=== PATIENT | female | born 1930 | race Caucasian/White ===

== ENCOUNTER 2016-07-22 14:51 | Inpatient (IN) | payer MEDICARE ==
[~2016-07-22] VITALS: Ht 172.7 cm; Wt 116.1 kg
[~2016-07-22 14:51] MED LIST: ALBUTEROL SULF8.5 GM INH; AMLODIPINE BESY10 MG ORAL; ASCORBIC ACID500 MG ORAL; AZITHROMYCIN250 MG ORAL; BENAZEPRIL HCL40 MG ORAL; CALCIUM CITRAT200 M1 PO; COLACE100 MG ORAL; FISH OIL CAP1000 MG ORAL; IBUPROFEN800 MG ORAL; NORCO 5-325 TA1 EACH ORAL; OCUVITE1 EA ORAL; OSTERA TABLET1 EACH PO; ROBAFEN-DM SYR118 ML PO; ROBITUSSIN AC5 ML ORAL; SIMVASTATIN20 MG ORAL
[2016-07-22] MEDS ORDERED: Ipratropium 0.02% Inh Soln 2.5ml UD HHN ONE (15:00)
[2016-07-22] MEDS ORDERED: Albuterol ud Inhalation HHN ONE (15:00)
[2016-07-22] MEDS ORDERED: OCUVITE TABLET1 EAC1 ORAL (15:05)
[2016-07-22] MEDS ORDERED: ASPIRIN81 MG ORAL (15:05)
[2016-07-22] MEDS ORDERED: VITAMIN B-122000 MC1 PO (15:05)
[2016-07-22] MEDS ORDERED: IBUPROFEN800 MG ORAL (15:05)
[2016-07-22 15:28] VITALS: BP 167/100
[2016-07-22] MEDS ORDERED: Diltiazem 25mg/5ml IV ONE ×2 (15:30→16:00)
[2016-07-22 15:41] VITALS: BP 123/96
--- NOTE | 2016-07-22 15:41 | Emergency Room Report ---
History of Present Illness General Chief Complaint: Dyspnea/Respdistress Source: Patient, Family Member Present Illness HPI The patient presents with 2 days of increasing dyspnea. She feels extremely short of breath at this time and feels palpitations in her chest she's had an episode like this in the past and was diagnosed with bronchitis. She has never been this ill. No fevers. No productive cough. Chart was reviewed and previous cardiac rhythm was normal sinus rhythm. No vomit, some nausea. No chest pain, dysuria, diarrhea. There is some swelling of her R foot according to son. No calf pain. She is anxious - not depressed. No rashes. Allergies: Coded Allergies: No Known Allergies (Unverified , 04/24/13) Patient History Past Medical History: see triage record, old chart reviewed Social History: Denies: smoking Social History Narrative at home Reviewed Nursing Documentation: PMH: Agreed, PSxH: Agreed Nursing Documentation-PMH Hx Hypertension: Yes Hx Pacemaker: No - ARTHRITIS ,HYPERLIPIDEMIA Hx COPD: No - BRONCHITIS Review of Systems All Other Systems: negative except mentioned in HPI Physical Exam Vital Signs Date Time Temp Pulse Resp B/P Pulse Ox O2 Delivery O2 Flow Rate FiO2 07/22/16 15:01 97.2 149 20 187/86 94 Room Air 07/22/16 15:28 2.0 Sp02 EP Interpretation: reviewed, abnormal - low on O2 as interpreted by me General Appearance: GCS 15, moderate distress Head: normocephalic Eyes: bilateral eye PERRL, bilateral eye normal inspection ENT: moist mucus membranes Neck: supple, other - jimenez a waves Respiratory: rales, wheezing, expiration Cardiovascular #1: no murmur, tachycardia, irregularly irregular, edema - trace bilat Cardiovascular #2: 2+ radial (R) Gastrointestinal: normal inspection, normal bowel sounds, non tender, no mass, non-distended Musculoskeletal: back normal, gait/station normal, normal range of motion, no calf tenderness, Rodolfo's Sign negative Neurologic: alert, oriented x3, grossly normal Psychiatric: anxious Skin: other - sallo and cool Procedures Critical Care Time Critical Care Time Total time: 45 min bedside evaluation and treatment excludes procedures (EKG). Reason for critical care: cardiac arrhythmia, hypoxia, a fib with conversion, + D dimer Possible complications: hypotension, hypertension, NE, shock, arrhythmias, metabolic acidosis, end organ damage, respiratory failure. Interventions: diltiazem, antibiotics Course: Hypoxia treated with O2 and beta agents. Discussion with RT. Attempt rate control with diltiazem - still rapid. Repeat dose. Pneumonia treated with antibiotics. + D dimer - to CTA. No clot. Converted after CT. Remarkably improved with treatment. Discussed with son multiple times. Consultations: nursing staff, EMS, family, RT, admitting MD Performed by: Dr. Felix Tolerated well condition = serious Medical Decision Making Diagnostic Impression: Primary Impression: Hypoxia Additional Impressions: Atrial fibrillation, new onset Pulmonary infiltrate in right lung on chest x-ray ER Course Patient presents with severe dyspnea. Emergent treatment with oxygen and breathing treatments will be undertaken. She also has rales. A chest x-ray and EKG will be obtained. In addition laboratory will be obtained also. Need to focus on rate control and assessment of A fib. Improved slightly on oxygen. HR rapid. Diltiazem ordered. Still tachycardic. Slightly better. Diltiazem repeated. Patient with elevated D dimer. Sent to CT with RN on monitor. Patient converted to NSR in ED. Repeat EKG - NSR, LAD, LBBB, sinus arrhythmia. Patient improved. CT neg for PE. Admit [place] Dr. Rivera. Discussed also with Dr. Arteaga. Laboratory Tests Test 07/22/16 15:21 07/22/16 15:25 07/22/16 16:26 White Blood Count 14.4 K/UL (4.8-10.8) H Red Blood Count 4.86 M/UL (4.20-5.40) Hemoglobin 15.6 G/DL (12.0-16.0) Hematocrit 45.4 % (37.0-47.0) Mean Corpuscular Volume 94 FL (80-99) Mean Corpuscular Hemoglobin 32.1 PG (27.0-31.0) H Mean Corpuscular Hemoglobin Concent 34.4 G/DL (32.0-36.0) Red Cell Distribution Width 12.7 % (11.6-14.8) Platelet Count 157 K/UL (150-450) Mean Platelet Volume 7.6 FL (6.5-10.1) Neutrophils (%) (Auto) 87.9 % (45.0-75.0) H Lymphocytes (%) (Auto) 6.7 % (20.0-45.0) L Monocytes (%) (Auto) 4.2 % (1.0-10.0) Eosinophils (%) (Auto) 0.3 % (0.0-3.0) Basophils (%) (Auto) 0.9 % (0.0-2.0) Prothrombin Time 10.3 SEC (9.30-11.50) Prothrombin Time INR 1.0 (0.9-1.1) PTT 25 SEC (23-33) D-Dimer 1898 ng/mL (<500) H Sodium Level 138 mEQ/L (135-145) Potassium Level 4.2 mEQ/L (3.4-4.9) Chloride Level 95 mEQ/L (98-107) L Carbon Dioxide Level 25 mEQ/L (20-30) Anion Gap 18 (5-15) H Blood Urea Nitrogen 13 mg/dL (7-23) Creatinine 0.8 mg/dL (0.5-0.9) Estimate Glomerular Filtration Rate mL/min (>60) Glucose Level 168 mg/dL (74-106) H Lactic Acid Level 2.70 mmol/L (0.66-2.22) H 2.20 mmol/L (0.66-2.22) Calcium Level 9.2 mg/dL (8.6-10.2) Total Bilirubin 1.0 mg/dL (0.0-1.2) Aspartate Amino Transferase (AST) 22 U/L (5-40) Alanine Aminotransferase (ALT) 18 U/L (3-33) Alkaline Phosphatase 73 U/L (35-104) Total Creatine Kinase 189 U/L (26-140) H Troponin I < 0.30 ng/mL (<=0.30) Pro-B-Type Natriuretic Peptide 908 pg/mL (0-450) H Total Protein 7.1 g/dL (6.6-8.7) Albumin 4.5 g/dL (3.5-5.2) Globulin 2.6 g/dL Albumin/Globulin Ratio 1.7 (1.0-2.7) Thyroid Stimulating Hormone (TSH) 1.250 uIU/mL (0.300-4.500) Free Thyroxine 1.12 ng/dL (0.86-1.85) Urine Color Pale yellow Urine Appearance Clear Urine pH 6.5 (4.5-8.0) Urine Specific [place] 1.010 (1.005-1.035) Urine Protein Negative (NEGATIVE) Urine Glucose (UA) Negative (NEGATIVE) Urine Ketones Negative (NEGATIVE) Urine Occult Blood 2+ (NEGATIVE) H Urine Nitrite Negative (NEGATIVE) Urine Bilirubin Negative (NEGATIVE) Urine Urobilinogen Normal MG/DL (0.0-1.0) Urine Leukocyte Esterase Negative (NEGATIVE) Urine RBC 0-2 /HPF (0 - 2) Urine WBC 0-2 /HPF (0 - 2) Urine Squamous Epithelial Cells Occasional /LPF Urine Bacteria Occasional /HPF (NONE) Microbiology Date/Time Source Procedure Growth Status 07/22/16 16:23 Nasal Nares Influenza Types A,B Antigen (MARTINEZ) - Final Complete EKG Diagnostic Results Rate: tachycardiac Rhythm: other - Atrial fibrillation ST Segments: other - BBB Rhythm Strip Diag. Results EP Interpretation: yes Rhythm: no PVC's, no ectopy, other - Rapid atrial fibrillation Chest X-Ray Diagnostic Results EP Interpretation: Yes Findings: no effusion, no pneumothorax, other - Bilateral infiltrates worse on the right-hand side with possible congestive heart failure Number of Views: 1 CT/MRI/US Diagnostic Results CT/MRI/US Diagnostic Results : Imaging Test Ordered: CTA Impression no PE, bilat infiltrates Impression: No evidence of pulmonary embolus, aortic dissection or aneurysm. Mild atherosclerotic disease of aorta. Small bilateral pleural effusions and posterior basal atelectasis. Some mild perihilar disease. Query bronchitis. Consider followup. Minimal patchy groundglass opacities within the lungs nonspecific. Gallstones Last Vital Signs Date Time Temp Pulse Resp B/P Pulse Ox O2 Delivery O2 Flow Rate FiO2 07/22/16 19:00 98.3 81 19 145/84 97 Nasal Cannula 2.0 32 Status: improved Disposition: ADMITTED INPATIENT Condition: Serious Referrals: [facility],REFERRING (PCP) Garret Felix M.D. Jul 22, 2016 15:41
[2016-07-22 15:44] LABS: MEAN CORPUSCULAR HEMOGLOBIN 32.1 PG (27.0-31.0); MEAN CORPUSCULAR HGB CONC 34.4 G/DL (32.0-36.0); MEAN CORPUSCULAR VOLUME 94 FL (80-99); MEAN PLATELET VOLUME 7.6 FL (6.5-10.1); PLATELET COUNT 157 K/UL (150-450); RED BLOOD COUNT 4.86 M/UL (4.20-5.40); RED CELL DISTRIBUTION WIDTH 12.7 % (11.6-14.8); WHITE BLOOD COUNT 14.4 K/UL (4.8-10.8)
[2016-07-22 15:45] LABS: APPEARANCE,URINE CLEAR; KETONES,URINE NEGATIVE (NEGATIVE); LEUKOCYTE ESTERASE ,URINE NEGATIVE (NEGATIVE); NITRITE,URINE NEGATIVE (NEGATIVE); PH,URINE 6.5 (4.5-8.0); PROTEIN,URINE NEGATIVE (NEGATIVE); UROBILINOGEN,URINE NORMAL MG/DL (0.0-1.0)
[2016-07-22] MEDS ORDERED: Azithromycin Inj IV ONE ×2 (15:55→16:10)
[2016-07-22] MEDS ORDERED: Zosyn 3.375gm inj ONE (15:55)
[2016-07-22] MEDS ORDERED: NS 110 ML ONE (15:56)
[2016-07-22] MEDS ORDERED: D5W 275 ML ONE (15:56)
[2016-07-22 16:00] LABS: BACTERIA,URINE OCCASIONAL /HPF; RBC,URINE 0-2 /HPF (0 - 2); SQUAMOUS EPITHELIAL CELL,UR OCCASIONAL /LPF (NONE/OCC); WBC,URINE 0-2 /HPF (0 - 2)
[2016-07-22] MEDS ORDERED: Azithromycin 500 MG in D5W 275 ML IVPB ONE (16:00)
[2016-07-22] MEDS ORDERED: Piperacillin/Tazobactam 3.375 GM in NS 110 ML IVPB ONE (16:00)
[2016-07-22 16:02] LABS: BASOPHILS % (AUTO) 0.9 % (0.0-2.0); EOSINOPHILS % (AUTO) 0.3 % (0.0-3.0); LYMPHOCYTES % (AUTO) 6.7 % (20.0-45.0); MONOCYTES % (AUTO) 4.2 % (1.0-10.0); NEUTROPHILS % (AUTO) 87.9 % (45.0-75.0)
[2016-07-22 16:15] LABS: TROPONIN I < 0.30 ng/mL (<=0.30)
[2016-07-22 16:18] LABS: ALANINE AMINOTRANSFERASE 18 U/L (3-33); ALBUMIN/GLOBULIN RATIO 1.7 (1.0-2.7); ANION GAP 18 (5-15); ASPARTATE AMINO TRANSFERASE 22 U/L (5-40); CALCIUM 9.2 mg/dL (8.6-10.2); CARBON DIOXIDE 25 mEQ/L (20-30); CHLORIDE 95 mEQ/L (98-107); CREATININE 0.8 mg/dL (0.5-0.9); HEMOLYSIS 5; POTASSIUM 4.2 mEQ/L (3.4-4.9); REFLEX LACTIC ACID YES OR NO YES; SODIUM 138 mEQ/L (135-145); TOTAL PROTEIN 7.1 g/dL (6.6-8.7)
[2016-07-22 16:27] LABS: PROTHROMBIN TIME 10.3 SEC (9.30-11.50)
[2016-07-22 17:37] VITALS: BP 145/84
[2016-07-22 20:00] VITALS: BP 130/78
--- NOTE | 2016-07-22 20:23 | Consultation ---
Consult Note Assessment/Plan Cardiology for Dr. Jaramillo Full note dictated #[id number] SWEETIE DAY Jul 22, 2016 20:23
[2016-07-22 20:53] LABS: THYROID STIMULATING HORMONE 1.25 uIU/mL (0.300-4.500)
[2016-07-22] MEDS ORDERED: Heparin 5000 units/ml inj SUBQ SCH (21:00)
[2016-07-22] MEDS ORDERED: Metoprolol 25mg tab ORAL SCH (21:00)
[2016-07-23] VITALS: BP 136/74
[2016-07-23 04:00] VITALS: BP 129/64
--- NOTE | 2016-07-23 04:17 | Consultation ---
DATE OF CONSULTATION: 07/22/2016 This is a cardiology consult/cardiac electrophysiology consult, coverage for Dr. Jaramillo. REQUESTING PHYSICIAN: Marcia Rivera M.D. REASON FOR CONSULT: Atrial fibrillation. HISTORY OF PRESENT ILLNESS: This is an 86-year-old woman with hypertension and hyperlipidemia who has had a nonproductive cough over the past two days. Today, she developed shortness of breath and weakness. She presented to the emergency room with severe dyspnea and was noted to be in atrial fibrillation with rapid ventricular rates up to 160 beats per minute. She received intravenous diltiazem, and her rhythm has subsequently reverted back to normal sinus. A CT angiogram was performed, which was negative for pulmonary embolus. Chest x-ray showed right lung infiltrate. She is admitted for further treatment. She denies any previous history of arrhythmia, coronary artery disease, or congestive heart failure. MEDICATIONS: Azithromycin 500 mg daily p.o., subcutaneous heparin 5000 units subcutaneously b.i.d., Tylenol p.r.n., Zofran p.r.n., and diltiazem 20 mg IV was given in the emergency room. Zosyn 3.375 g was given IV x1 in the emergency room and azithromycin 500 mg IV given in the emergency room. ALLERGIES: No known drug allergies. PAST MEDICAL HISTORY: As noted above. SOCIAL HISTORY: The patient has a remote history of tobacco use less than one-half pack per day but has not smoked in several years. She has no history of alcohol abuse. PHYSICAL EXAMINATION: VITAL SIGNS: Blood pressure is 145/84, pulse 81 and regular, respirations 19, temperature 98.3, and pulse oximeter on 2 liters nasal cannula 97%. GENERAL: Alert, obese, white female in no acute distress on nasal cannula oxygen. HEENT: Normocephalic and atraumatic. Pupils are equal, round, and reactive to light. Sclerae anicteric. Oral mucosa moist. NECK: Supple. There is no jugular venous distention. Carotid pulses are 2+ without bruits. LUNGS: A few crackles at both bases. Good air movement. HEART: Regular rate and rhythm. S1 and S2 with distant heart sounds. No murmurs, rubs, S3, or S4. ABDOMEN: Obese, soft, and nontender. No palpable mass. EXTREMITIES: 2+ pitting edema of feet to ankles bilaterally. Distal lower extremity pulses 2+ bilaterally. LABORATORY DATA: Sodium 138, potassium 4.2, chloride 95, bicarbonate 25, BUN 13, creatinine 0.8, and glucose 168. Natriuretic peptide 908. Troponin less than 0.3. White blood count 14,400, hemoglobin 15.6, and platelets 157,000. Chest x-ray shows normal pulmonary vasculature, no cardiomegaly, and mild increased markings at the right base. EKG on admission showed atrial fibrillation with rapid ventricular response of 158 beats per minute, left bundle-branch block (no old EKG available for comparison). Repeat EKG shows sinus rhythm at 79 beats per minute with left bundle-branch block. ASSESSMENT AND RECOMMENDATIONS: The patient is an 86-year-old woman with hypertension and hyperlipidemia who is admitted with bronchitis versus pneumonia, and in this setting developed atrial fibrillation with rapid ventricular rates. Her rhythm has reverted back to normal sinus with intravenous diltiazem. There is no evidence for DVT or pulmonary embolus. There is no evidence for acute coronary syndrome. Troponin levels are negative though EKG does show a left bundle-branch block of uncertain duration. I would recommend continuing to trend troponins. I would agree with checking thyroid function tests and would obtain an echo to evaluate left ventricular function and valves. I will start low-dose beta-jodie for rate control. Should atrial fibrillation recur, I would consider anticoagulation given her CHADS score of 2. Dona Meadows M.D. DR: QUENTIN JOB#: [id number] CC:
[2016-07-23 05:32] LABS: BASOPHILS % (AUTO) 0.5 % (0.0-2.0); EOSINOPHILS % (AUTO) 0.8 % (0.0-3.0); LYMPHOCYTES % (AUTO) 15.4 % (20.0-45.0); MEAN CORPUSCULAR HEMOGLOBIN 31.9 PG (27.0-31.0); MEAN CORPUSCULAR HGB CONC 33.1 G/DL (32.0-36.0); MEAN CORPUSCULAR VOLUME 96 FL (80-99); MEAN PLATELET VOLUME 7.8 FL (6.5-10.1); NEUTROPHILS % (AUTO) 77.3 % (45.0-75.0); PLATELET COUNT 133 K/UL (150-450); RED BLOOD COUNT 3.91 M/UL (4.20-5.40); RED CELL DISTRIBUTION WIDTH 12.4 % (11.6-14.8); WHITE BLOOD COUNT 9.9 K/UL (4.8-10.8)
[2016-07-23 06:05] LABS: ALANINE AMINOTRANSFERASE 16 U/L (3-33); ALBUMIN/GLOBULIN RATIO 1.4 (1.0-2.7); ANION GAP 16 (5-15); ASPARTATE AMINO TRANSFERASE 20 U/L (5-40); CALCIUM 8.8 mg/dL (8.6-10.2); CARBON DIOXIDE 24 mEQ/L (20-30); CHLORIDE 99 mEQ/L (98-107); CREATININE 0.8 mg/dL (0.5-0.9); HEMOLYSIS 5; SODIUM 139 mEQ/L (135-145)
[2016-07-23 06:09] LABS: TROPONIN I < 0.30 ng/mL (<=0.30)
[2016-07-23 07:02] LABS: BILIRUBIN,DIRECT 0.2 mg/dL (0.1-0.3)
[2016-07-23 08:12] VITALS: BP 112/77
[2016-07-23] MEDS ORDERED: Heparin 5000 units/ml inj SUBQ SCH (09:00)
[2016-07-23] MEDS ORDERED: Metoprolol 25mg tab ORAL SCH (09:00)
--- NOTE | 2016-07-23 09:22 | Diagnostic Imaging Report ---
Indication: Chest pain Technique: Continuous helical transaxial imaging of the chest was obtained from the thoracic inlet to the upper abdomen during rapid intravenous contrast administration. Arterial phase of enhancement obtained. Coronal 2-D reformats were also obtained and maximum intensity projection images in multiple planes. Study obtained in a Siemens sensation [address] Total Dose length Product (DLP): [address] Dose Index Volume (CTDIvol): 13, 25, 33 mGy Comparison: None Findings: Bilateral pleural effusions are present with posterior basal atelectasis seen is a groundglass opacities at the peripheral posterior aspect lower lobes. There is free motion artifact which limits evaluation. There is no pulmonary embolus identified. The heart is enlarged. Aorta shows mural calcification but is normal in caliber and there is no dissection. No adenopathy is identified. There is a hiatal hernia. Some patchy perihilar densities are present bilaterally slightly worse on the right. Doubt this is adenopathy. Findings may be due to some adjacent parenchymal disease or bronchitis. These correlate clinically. The lungs show a few very mild scattered areas of groundglass opacification within portions of the upper and lower lobes. These findings are nonspecific. The upper abdomen shows gallstones. Impression: No evidence of pulmonary embolus, aortic dissection or aneurysm. Mild atherosclerotic disease of aorta. Small bilateral pleural effusions and posterior basal atelectasis. Some mild perihilar disease. Query bronchitis. Consider followup. Minimal patchy groundglass opacities within the lungs nonspecific. Gallstones Dr. Moreno has communicated the preliminary results to the Emergency Department. There are no significant discrepancies. The CT scanner at [facility] is accredited by the [employer] and the scans are performed using protocols designed to limit radiation exposure to as low as reasonably achievable to attain images of sufficient resolution adequate for diagnostic evaluation.
[2016-07-23] MEDS ORDERED: Furosemide 40mg tab ORAL ONE (10:00)
[2016-07-23 11:28] VITALS: BP 130/69
--- NOTE | 2016-07-23 14:50 | History and Physical ---
History of Present Illness General Date patient seen: Jul 22, 2016 Time patient seen: 17:52 Reason for Hospitalization: Dyspnea/Respdistress Present Illness HPI 86 yo [place] F with PMH of HTN, HLD and DJD p/w 2 d h/o productive cough with yellowish sputum, and SOB. No cp/palpitations. No f/c. +generalized weakness. usually ambulates with no difficulties. No h/o PNA. In ED, CXR with b/l infiltrates and found to be in a fib with RVR, which converted back to NSR after a dose of Dilt. +LE edema on ROS Allergies: Coded Allergies: No Known Allergies (Unverified , 04/24/13) Medication History Scheduled Albuterol Sulfate* (Albuterol Sulfate Mdi*), 2 PUFF INH Q6H Amlodipine Besylate* (Amlodipine Besylate*), 10 MG ORAL DAILY, (Reported) Ascorbic Acid* (Ascorbic Acid*), 500 MG ORAL DAILY, (Reported) Aspirin* (Aspirin*), 81 MG ORAL DAILY, (Reported) Azithromycin* (Zithromax*), 250 MG ORAL DAILY Benazepril Hcl* (Benazepril Hcl*), 40 MG ORAL DAILY, (Reported) Fish Oil (Fish Oil 1,000 mg Capsule), 1,000 MG ORAL DAILY, (Reported) Simvastatin (Zocor), 20 MG ORAL BEDTIME, (Reported) Vit A,C & E/Lutein/Minerals (Ocuvite Tablet), 1 TAB ORAL DAILY, (Reported) Vit D3 & K/Berberine Hcl/Hops (Ostera Tablet), 1 EACH PO D, (Reported) Scheduled PRN Guaifenesin/Codeine (Guaifenesin-Codeine Syrup), 5 ML ORAL EVERY 8 HOURS PRN for For Cough Guaifenesin/Dextromethorphan (Robafen-Dm Syrup), 5 ML PO EVERY 6 HOURS PRN for For Cough Ibuprofen* (Motrin*), 800 MG ORAL PRN PRN for For Pain, (Reported) Miscellaneous Medications Calcium Citrate (Calcium Citrate), 200 MG PO, (Reported) Cyanocobalamin (Vitamin B-12) (Vitamin B-12), 5,000 MCG PO, (Reported) Patient History Healthcare decision maker Resuscitation status Full Code Advanced Directive on File Past Medical/Surgical History Past Medical/Surgical History: (1) DJD (degenerative joint disease), multiple sites (2) HLD (hyperlipidemia) (3) HTN (hypertension) Family History Family History: Patient reports no known family medical history. Social History Social History: (1) No significant social history Review of Systems All Other Systems: negative except mentioned in HPI Physical Exam General Appearance: no apparent distress, alert HEENT: normocephalic, atraumatic, anicteric, mucous membranes moist, PERRL, EOMI, pharynx normal, no JVD Neck: non-tender, supple Respiratory/Chest: lungs clear, normal breath sounds, no respiratory distress, no accessory muscle use Cardiovascular/Chest: normal peripheral pulses, normal rate, regular rhythm Abdomen: normal bowel sounds, non tender, soft, no mass Extremities: non-tender, normal inspection, moderate edema Skin Exam: warm/dry 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, no motor/sensory deficits, alert Musculoskeletal: normal muscle bulk Last 24 Hour Vital Signs Date Time Temp Pulse Resp B/P Pulse Ox O2 Delivery O2 Flow Rate FiO2 07/23/16 11:28 98.1 67 18 130/69 96 Nasal Cannula 2.0 07/23/16 09:09 66 112/77 07/23/16 08:12 97.7 66 18 112/77 93 Nasal Cannula 2.0 07/23/16 08:00 67 07/23/16 04:29 70 07/23/16 04:00 96.1 73 20 129/64 96 Nasal Cannula 2.0 07/23/16 00:00 65 07/23/16 00:00 97.7 74 20 136/74 96 Nasal Cannula 2.0 07/22/16 21:00 82 130/78 07/22/16 20:00 98.3 82 20 130/78 96 Nasal Cannula 2.0 07/22/16 20:00 82 07/22/16 19:00 98.3 81 19 145/84 97 Nasal Cannula 2.0 32 07/22/16 17:37 98.3 81 19 145/84 97 Nasal Cannula 2.0 07/22/16 16:49 154 22 99 Nasal Cannula 3.0 07/22/16 16:49 164 24 93 Nasal Cannula 3.0 07/22/16 16:49 32 07/22/16 16:49 164 24 Nasal Cannula 3.0 07/22/16 16:01 160 123/96 07/22/16 15:41 98.3 124 20 123/96 96 Nasal Cannula 2.0 07/22/16 15:33 157 167/100 07/22/16 15:28 163 24 Nasal Cannula 2.0 07/22/16 15:28 98.3 163 24 167/100 93 Nasal Cannula 2.0 07/22/16 15:01 97.2 149 20 187/86 94 Room Air Intake and Output 07/22/16 07/23/16 19:00 07:00 Intake Total 100 ml 50 ml Output Total 20 ml Balance 80 ml 50 ml Intake Oral 100 ml 50 ml Output Urine Total 20 ml # Voids 1 4 Laboratory Tests Test 07/22/16 15:21 07/22/16 15:25 07/22/16 16:26 07/23/16 03:30 White Blood Count 14.4 K/UL (4.8-10.8) H 9.9 K/UL (4.8-10.8) Red Blood Count 4.86 M/UL (4.20-5.40) 3.91 M/UL (4.20-5.40) L Hemoglobin 15.6 G/DL (12.0-16.0) 12.5 G/DL (12.0-16.0) Hematocrit 45.4 % (37.0-47.0) 37.8 % (37.0-47.0) Mean Corpuscular Volume 94 FL (80-99) 96 FL (80-99) Mean Corpuscular Hemoglobin 32.1 PG (27.0-31.0) H 31.9 PG (27.0-31.0) H Mean Corpuscular Hemoglobin Concent 34.4 G/DL (32.0-36.0) 33.1 G/DL (32.0-36.0) Red Cell Distribution Width 12.7 % (11.6-14.8) 12.4 % (11.6-14.8) Platelet Count 157 K/UL (150-450) 133 K/UL (150-450) L Mean Platelet Volume 7.6 FL (6.5-10.1) 7.8 FL (6.5-10.1) Neutrophils (%) (Auto) 87.9 % (45.0-75.0) H 77.3 % (45.0-75.0) H Lymphocytes (%) (Auto) 6.7 % (20.0-45.0) L 15.4 % (20.0-45.0) L Monocytes (%) (Auto) 4.2 % (1.0-10.0) 6.0 % (1.0-10.0) Eosinophils (%) (Auto) 0.3 % (0.0-3.0) 0.8 % (0.0-3.0) Basophils (%) (Auto) 0.9 % (0.0-2.0) 0.5 % (0.0-2.0) Prothrombin Time 10.3 SEC (9.30-11.50) Prothromb Time International Ratio 1.0 (0.9-1.1) Activated Partial Thromboplast Time 25 SEC (23-33) D-Dimer 1898 ng/mL (<500) H Sodium Level 138 mEQ/L (135-145) 139 mEQ/L (135-145) Potassium Level 4.2 mEQ/L (3.4-4.9) 4.0 mEQ/L (3.4-4.9) Chloride Level 95 mEQ/L (98-107) L 99 mEQ/L (98-107) Carbon Dioxide Level 25 mEQ/L (20-30) 24 mEQ/L (20-30) Anion Gap 18 (5-15) H 16 (5-15) H Blood Urea Nitrogen 13 mg/dL (7-23) 13 mg/dL (7-23) Creatinine 0.8 mg/dL (0.5-0.9) 0.8 mg/dL (0.5-0.9) Estimat Glomerular Filtration Rate mL/min (>60) mL/min (>60) Glucose Level 168 mg/dL (74-106) H 126 mg/dL (74-106) H Lactic Acid Level 2.70 mmol/L (0.66-2.22) H 2.20 mmol/L (0.66-2.22) Calcium Level 9.2 mg/dL (8.6-10.2) 8.8 mg/dL (8.6-10.2) Total Bilirubin 1.0 mg/dL (0.0-1.2) 1.2 mg/dL (0.0-1.2) Aspartate Amino Transf (AST/SGOT) 22 U/L (5-40) 20 U/L (5-40) Alanine Aminotransferase (ALT/SGPT) 18 U/L (3-33) 16 U/L (3-33) Alkaline Phosphatase 73 U/L (35-104) 70 U/L (35-104) Total Creatine Kinase 189 U/L (26-140) H Troponin I < 0.30 ng/mL (<=0.30) < 0.30 ng/mL (<=0.30) Pro-B-Type Natriuretic Peptide 908 pg/mL (0-450) H Total Protein 7.1 g/dL (6.6-8.7) 6.0 g/dL (6.6-8.7) L Albumin 4.5 g/dL (3.5-5.2) 3.5 g/dL (3.5-5.2) Globulin 2.6 g/dL 2.5 g/dL Albumin/Globulin Ratio 1.7 (1.0-2.7) 1.4 (1.0-2.7) Thyroid Stimulating Hormone (TSH) 1.250 uIU/mL (0.300-4.500) Free Thyroxine 1.12 ng/dL (0.86-1.85) Urine Color Pale yellow Urine Appearance Clear Urine pH 6.5 (4.5-8.0) Urine Specific [place] 1.010 (1.005-1.035) Urine Protein Negative (NEGATIVE) Urine Glucose (UA) Negative (NEGATIVE) Urine Ketones Negative (NEGATIVE) Urine Occult Blood 2+ (NEGATIVE) H Urine Nitrite Negative (NEGATIVE) Urine Bilirubin Negative (NEGATIVE) Urine Urobilinogen Normal MG/DL (0.0-1.0) Urine Leukocyte Esterase Negative (NEGATIVE) Urine RBC 0-2 /HPF (0 - 2) Urine WBC 0-2 /HPF (0 - 2) Urine Squamous Epithelial Cells Occasional /LPF Urine Bacteria Occasional /HPF (NONE) Direct Bilirubin 0.2 mg/dL (0.1-0.3) Microbiology Date/Time Source Procedure Growth Status 07/22/16 16:23 Nasal Nares Influenza Types A,B Antigen (MARTINEZ) - Final Complete Height (Feet): 5 Height (Inches): 8.00 Weight (Pounds): 250 Medications Current Medications Medications (Trade) Dose Ordered Sig/Helio Route PRN Reason Start Time Stop Time Status Last Admin Dose Admin Acetaminophen (Tylenol) 650 mg Q4H PRN ORAL Mild Pain (Pain Scale 1-3) 07/23/16 07:45 08/22/16 07:44 Acetaminophen (Tylenol) 650 mg Q4H PRN ORAL fever 07/23/16 07:45 08/22/16 07:44 Azithromycin (Zithromax) 250 mg DAILY@1630 ORAL 07/23/16 16:30 07/30/16 16:29 Dextrose (Dextrose 50%) STAT PRN IV Hypoglycemia 07/23/16 19:45 08/22/16 19:44 Heparin Sodium (Porcine) (Heparin 5000 units/ml) 5,000 units EVERY 12 HOURS SUBQ 07/23/16 09:00 08/22/16 08:59 07/23/16 09:11 Metoprolol Tartrate (Lopressor) 12.5 mg Q12HR ORAL 07/23/16 21:00 08/22/16 20:59 Ondansetron HCl (Zofran) 4 mg Q6H PRN IVP Nausea & Vomiting 07/23/16 07:45 08/22/16 07:44 Assessment/Plan Problem List: (1) Acute CHF ICD Codes: I50.9 - Heart failure, unspecified SNOMED: 13078082 (2) Bronchitis ICD Codes: J40 - Bronchitis, not specified as acute or chronic SNOMED: 74803700 (3) Episode of generalized weakness ICD Codes: R53.1 - Weakness SNOMED: 69316996 (4) Atrial fibrillation with RVR ICD Codes: I48.91 - Unspecified atrial fibrillation SNOMED: 583764033578660 (5) HTN (hypertension) ICD Codes: I10 - Essential (primary) hypertension SNOMED: 90930449 (6) HLD (hyperlipidemia) ICD Codes: E78.5 - Hyperlipidemia, unspecified SNOMED: 00045515 (7) DJD (degenerative joint disease), multiple sites ICD Codes: M15.9 - Polyosteoarthritis, unspecified SNOMED: 063408482 Status: progressing Assessment/Plan admit to tele Cards c/s; started on Metop 25-->12.5 2/2 low HR heparin dvt ppx; SCDs no ac lasix 40 po x 1 po azithro pt/ot statin TTE T4/TSH Vinod Arteaga M.D. Jul 23, 2016 14:50
--- NOTE | 2016-07-23 15:00 | Cardiac Electrophysiology PN ---
Assessment/Plan Status: stable, progressing Status Narrative Mrs. Hayward has exertional dyspnea due to pneumonia and poss also component of CHF. LV systolic function is mildly decreased by ECHO, EF 45-50%. She has not had further episodes of AF on telemetry. Assessment/Plan Will start anticoagulation for PAF, in view of chads vasc score of 4 (age > 75, female sex, htn) Continue metoprolol for rate control if AF recurs, and BP control. Management of pneumonia per primary MD Subjective ROS Limited/Unobtainable: No Subjective Mrs Hayward reports dyspnea w/ walking short distances. No palpitations or cp Objective Last 24 Hour Vital Signs Date Time Temp Pulse Resp B/P Pulse Ox O2 Delivery O2 Flow Rate FiO2 07/23/16 11:28 98.1 67 18 130/69 96 Nasal Cannula 2.0 07/23/16 09:09 66 112/77 07/23/16 08:12 97.7 66 18 112/77 93 Nasal Cannula 2.0 07/23/16 08:00 67 07/23/16 04:29 70 07/23/16 04:00 96.1 73 20 129/64 96 Nasal Cannula 2.0 07/23/16 00:00 65 07/23/16 00:00 97.7 74 20 136/74 96 Nasal Cannula 2.0 07/22/16 21:00 82 130/78 07/22/16 20:00 98.3 82 20 130/78 96 Nasal Cannula 2.0 07/22/16 20:00 82 07/22/16 19:00 98.3 81 19 145/84 97 Nasal Cannula 2.0 32 07/22/16 17:37 98.3 81 19 145/84 97 Nasal Cannula 2.0 07/22/16 16:49 154 22 99 Nasal Cannula 3.0 07/22/16 16:49 164 24 93 Nasal Cannula 3.0 07/22/16 16:49 32 07/22/16 16:49 164 24 Nasal Cannula 3.0 07/22/16 16:01 160 123/96 07/22/16 15:41 98.3 124 20 123/96 96 Nasal Cannula 2.0 07/22/16 15:33 157 167/100 07/22/16 15:28 163 24 Nasal Cannula 2.0 07/22/16 15:28 98.3 163 24 167/100 93 Nasal Cannula 2.0 1/18/17 15:01 97.2 149 20 187/86 94 Room Air General Appearance: WD/WN, no apparent distress, alert, obese EENT: PERRL/EOMI Neck: non-tender, supple, no JVD Rhythm: NSR Cardiovascular: normal rate, regular rhythm, no gallop/murmur Respiratory/Chest: crackles/rales - min crackles at bases Abdomen: non tender, soft Extremities: no swelling, trace edema - 2+ pitting edema of feet/ankles bilat, moderate edema Intake and Output 07/22/16 07/23/16 19:00 07:00 Intake Total 100 ml 50 ml Output Total 20 ml Balance 80 ml 50 ml Intake Oral 100 ml 50 ml Output Urine Total 20 ml # Voids 1 4 Laboratory Tests Test 07/22/16 15:21 07/22/16 15:25 07/22/16 16:26 07/23/16 03:30 White Blood Count 14.4 K/UL (4.8-10.8) H 9.9 K/UL (4.8-10.8) Red Blood Count 4.86 M/UL (4.20-5.40) 3.91 M/UL (4.20-5.40) L Hemoglobin 15.6 G/DL (12.0-16.0) 12.5 G/DL (12.0-16.0) Hematocrit 45.4 % (37.0-47.0) 37.8 % (37.0-47.0) Mean Corpuscular Volume 94 FL (80-99) 96 FL (80-99) Mean Corpuscular Hemoglobin 32.1 PG (27.0-31.0) H 31.9 PG (27.0-31.0) H Mean Corpuscular Hemoglobin Concent 34.4 G/DL (32.0-36.0) 33.1 G/DL (32.0-36.0) Red Cell Distribution Width 12.7 % (11.6-14.8) 12.4 % (11.6-14.8) Platelet Count 157 K/UL (150-450) 133 K/UL (150-450) L Mean Platelet Volume 7.6 FL (6.5-10.1) 7.8 FL (6.5-10.1) Neutrophils (%) (Auto) 87.9 % (45.0-75.0) H 77.3 % (45.0-75.0) H Lymphocytes (%) (Auto) 6.7 % (20.0-45.0) L 15.4 % (20.0-45.0) L Monocytes (%) (Auto) 4.2 % (1.0-10.0) 6.0 % (1.0-10.0) Eosinophils (%) (Auto) 0.3 % (0.0-3.0) 0.8 % (0.0-3.0) Basophils (%) (Auto) 0.9 % (0.0-2.0) 0.5 % (0.0-2.0) Prothrombin Time 10.3 SEC (9.30-11.50) Prothromb Time International Ratio 1.0 (0.9-1.1) Activated Partial Thromboplast Time 25 SEC (23-33) D-Dimer 1898 ng/mL (<500) H Sodium Level 138 mEQ/L (135-145) 139 mEQ/L (135-145) Potassium Level 4.2 mEQ/L (3.4-4.9) 4.0 mEQ/L (3.4-4.9) Chloride Level 95 mEQ/L (98-107) L 99 mEQ/L (98-107) Carbon Dioxide Level 25 mEQ/L (20-30) 24 mEQ/L (20-30) Anion Gap 18 (5-15) H 16 (5-15) H Blood Urea Nitrogen 13 mg/dL (7-23) 13 mg/dL (7-23) Creatinine 0.8 mg/dL (0.5-0.9) 0.8 mg/dL (0.5-0.9) Estimat Glomerular Filtration Rate mL/min (>60) mL/min (>60) Glucose Level 168 mg/dL (74-106) H 126 mg/dL (74-106) H Lactic Acid Level 2.70 mmol/L (0.66-2.22) H 2.20 mmol/L (0.66-2.22) Calcium Level 9.2 mg/dL (8.6-10.2) 8.8 mg/dL (8.6-10.2) Total Bilirubin 1.0 mg/dL (0.0-1.2) 1.2 mg/dL (0.0-1.2) Aspartate Amino Transf (AST/SGOT) 22 U/L (5-40) 20 U/L (5-40) Alanine Aminotransferase (ALT/SGPT) 18 U/L (3-33) 16 U/L (3-33) Alkaline Phosphatase 73 U/L (35-104) 70 U/L (35-104) Total Creatine Kinase 189 U/L (26-140) H Troponin I < 0.30 ng/mL (<=0.30) < 0.30 ng/mL (<=0.30) Pro-B-Type Natriuretic Peptide 908 pg/mL (0-450) H Total Protein 7.1 g/dL (6.6-8.7) 6.0 g/dL (6.6-8.7) L Albumin 4.5 g/dL (3.5-5.2) 3.5 g/dL (3.5-5.2) Globulin 2.6 g/dL 2.5 g/dL Albumin/Globulin Ratio 1.7 (1.0-2.7) 1.4 (1.0-2.7) Thyroid Stimulating Hormone (TSH) 1.250 uIU/mL (0.300-4.500) Free Thyroxine 1.12 ng/dL (0.86-1.85) Urine Color Pale yellow Urine Appearance Clear Urine pH 6.5 (4.5-8.0) Urine Specific [place] 1.010 (1.005-1.035) Urine Protein Negative (NEGATIVE) Urine Glucose (UA) Negative (NEGATIVE) Urine Ketones Negative (NEGATIVE) Urine Occult Blood 2+ (NEGATIVE) H Urine Nitrite Negative (NEGATIVE) Urine Bilirubin Negative (NEGATIVE) Urine Urobilinogen Normal MG/DL (0.0-1.0) Urine Leukocyte Esterase Negative (NEGATIVE) Urine RBC 0-2 /HPF (0 - 2) Urine WBC 0-2 /HPF (0 - 2) Urine Squamous Epithelial Cells Occasional /LPF Urine Bacteria Occasional /HPF (NONE) Direct Bilirubin 0.2 mg/dL (0.1-0.3) Microbiology Date/Time Source Procedure Growth Status 07/22/16 16:23 Nasal Nares Influenza Types A,B Antigen (MARTINEZ) - Final Complete GALLIK,SWEETIE Jul 23, 2016 15:00
[2016-07-23 16:00] VITALS: BP 115/67
[2016-07-23] MEDS ORDERED: Azithromycin 250mg tab ORAL SCH (16:30)
[2016-07-23] MEDS: Azithromycin 250mg tab ORAL SCH (16:46)
--- NOTE | 2016-07-23 17:49 | General Progress Note ---
Assessment/Plan Problem List: (1) Acute CHF ICD Codes: I50.9 - Heart failure, unspecified SNOMED: 34138934 (2) Bronchitis ICD Codes: J40 - Bronchitis, not specified as acute or chronic SNOMED: 58543737 (3) Episode of generalized weakness ICD Codes: R53.1 - Weakness SNOMED: 70271093 (4) Atrial fibrillation with RVR ICD Codes: I48.91 - Unspecified atrial fibrillation SNOMED: 761625764739770 (5) HTN (hypertension) ICD Codes: I10 - Essential (primary) hypertension SNOMED: 74163698 (6) HLD (hyperlipidemia) ICD Codes: E78.5 - Hyperlipidemia, unspecified SNOMED: 53740239 (7) DJD (degenerative joint disease), multiple sites ICD Codes: M15.9 - Polyosteoarthritis, unspecified SNOMED: 715212299 Assessment/Plan admit to tele Cards c/s; started on Metop 25-->12.5 2/2 low HR heparin dvt ppx; SCDs Eliquis lasix 40 po x 1 po azithro pt/ot statin TTE shows systolic HF with EF 45% f/u T4/TSH Subjective Date patient seen: Jul 23, 2016 Time patient seen: 17:48 Allergies: Coded Allergies: No Known Allergies (Unverified , 04/24/13) Subjective pt reports sob improved Objective Last 24 Hour Vital Signs Date Time Temp Pulse Resp B/P Pulse Ox O2 Delivery O2 Flow Rate FiO2 07/23/16 16:00 97.7 71 22 115/67 95 Room Air 07/23/16 12:00 65 07/23/16 11:28 98.1 67 18 130/69 96 Nasal Cannula 2.0 07/23/16 09:09 66 112/77 07/23/16 08:12 97.7 66 18 112/77 93 Nasal Cannula 2.0 07/23/16 08:00 67 07/23/16 04:29 70 07/23/16 04:00 96.1 73 20 129/64 96 Nasal Cannula 2.0 07/23/16 00:00 65 07/23/16 00:00 97.7 74 20 136/74 96 Nasal Cannula 2.0 07/22/16 21:00 82 130/78 07/22/16 20:00 98.3 82 20 130/78 96 Nasal Cannula 2.0 1/18/17 20:00 82 07/22/16 19:00 98.3 81 19 145/84 97 Nasal Cannula 2.0 32 Intake and Output 07/22/16 07/23/16 19:00 07:00 Intake Total 100 ml 50 ml Output Total 20 ml Balance 80 ml 50 ml Intake Oral 100 ml 50 ml Output Urine Total 20 ml # Voids 1 4 Laboratory Tests 07/23/16 03:30: White Blood Count 9.9, Red Blood Count 3.91L, Hemoglobin 12.5, Hematocrit 37.8, Mean Corpuscular Volume 96, Mean Corpuscular Hemoglobin 31.9H, Mean Corpuscular Hemoglobin Concent 33.1, Red Cell Distribution Width 12.4, Platelet Count 133L, Mean Platelet Volume 7.8, Neutrophils (%) (Auto) 77.3H, Lymphocytes (%) (Auto) 15.4L, Monocytes (%) (Auto) 6.0, Eosinophils (%) (Auto) 0.8, Basophils (%) (Auto ) 0.5, Sodium Level 139, Potassium Level 4.0, Chloride Level 99, Carbon Dioxide Level 24, Anion Gap 16H, Blood Urea Nitrogen 13, Creatinine 0.8, Estimat Glomerular Filtration Rate , Glucose Level 126H, Calcium Level 8.8, Total Bilirubin 1.2, Direct Bilirubin 0.2, Aspartate Amino Transf (AST/SGOT) 20, Alanine Aminotransferase (ALT/SGPT) 16, Alkaline Phosphatase 70, Troponin I < 0.30, Total Protein 6.0L, Albumin 3.5, Globulin 2.5, Albumin/Globulin Ratio 1.4 Height (Feet): 5 Height (Inches): 8.00 Weight (Pounds): 250 Objective General Appearance: mild resp distress with somewhat labored breathing, alert HEENT: normocephalic, atraumatic, anicteric, mucous membranes moist, PERRL, EOMI, pharynx normal, no JVD Neck: non-tender, supple Respiratory/Chest: lungs clear, normal breath sounds, no respiratory distress, no accessory muscle use Cardiovascular/Chest: normal peripheral pulses, normal rate, regular rhythm Abdomen: normal bowel sounds, non tender, soft, no mass Extremities: non-tender, normal inspection, trace edema Skin Exam: warm/dry 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 Jul 23, 2016 17:49
[2016-07-23 20:00] VITALS: BP 141/88
[2016-07-23] MEDS: Metoprolol Tartrate 12.5mg TAB ORAL SCH (21:01)
[2016-07-23] MEDS: Eliquis 2.5mg tablet ORAL SCH (21:01)
[2016-07-24] VITALS: BP 145/73
[2016-07-24 04:00] VITALS: BP 141/78
[2016-07-24 07:57] LABS: BASOPHILS % (AUTO) 1.4 % (0.0-2.0); EOSINOPHILS % (AUTO) 2.7 % (0.0-3.0); LYMPHOCYTES % (AUTO) 32.9 % (20.0-45.0); MEAN CORPUSCULAR HEMOGLOBIN 31.2 PG (27.0-31.0); MEAN CORPUSCULAR HGB CONC 33.2 G/DL (32.0-36.0); MEAN CORPUSCULAR VOLUME 94 FL (80-99); MEAN PLATELET VOLUME 8.9 FL (6.5-10.1); MONOCYTES % (AUTO) 12.1 % (1.0-10.0); PLATELET COUNT 143 K/UL (150-450); RED BLOOD COUNT 4.03 M/UL (4.20-5.40); RED CELL DISTRIBUTION WIDTH 12.6 % (11.6-14.8); WHITE BLOOD COUNT 5.6 K/UL (4.8-10.8)
[2016-07-24 08:01] VITALS: BP 150/96
[2016-07-24 08:05] LABS: ANION GAP 11 (5-15); CALCIUM 8.9 mg/dL (8.6-10.2); CARBON DIOXIDE 30 mEQ/L (20-30); CHLORIDE 100 mEQ/L (98-107); CREATININE 0.8 mg/dL (0.5-0.9); HEMOLYSIS 8; POTASSIUM 4.2 mEQ/L (3.4-4.9); SODIUM 141 mEQ/L (135-145)
[2016-07-24] MEDS: Eliquis 2.5mg tablet ORAL SCH ×2 (08:34→20:44)
[2016-07-24] MEDS: Metoprolol Tartrate 12.5mg TAB ORAL SCH ×2 (08:34→20:45)
[2016-07-24 11:42] VITALS: BP 116/67
[2016-07-24 16:00] VITALS: BP 131/74
[2016-07-24] MEDS: Azithromycin 250mg tab ORAL SCH (16:23)
[2016-07-24] MEDS ORDERED: Furosemide 40mg tab ORAL ONE (18:00)
--- NOTE | 2016-07-24 18:37 | General Progress Note ---
Assessment/Plan Problem List: (1) Acute CHF ICD Codes: I50.9 - Heart failure, unspecified SNOMED: 98519622 (2) Bronchitis ICD Codes: J40 - Bronchitis, not specified as acute or chronic SNOMED: 28748033 (3) Episode of generalized weakness ICD Codes: R53.1 - Weakness SNOMED: 15248225 (4) Atrial fibrillation with RVR ICD Codes: I48.91 - Unspecified atrial fibrillation SNOMED: 589422008819017 (5) HTN (hypertension) ICD Codes: I10 - Essential (primary) hypertension SNOMED: 88088928 (6) HLD (hyperlipidemia) ICD Codes: E78.5 - Hyperlipidemia, unspecified SNOMED: 12720030 (7) DJD (degenerative joint disease), multiple sites ICD Codes: M15.9 - Polyosteoarthritis, unspecified SNOMED: 167703790 Assessment/Plan admit to tele Cards c/s; started on Metop 25-->12.5 2/2 low HR SCDs Eliquis lasix 40 po x 1 po azithro pt/ot statin TTE shows systolic HF with EF 45% T4/TSH wnl Subjective Date patient seen: Jul 24, 2016 Time patient seen: 18:36 Allergies: Coded Allergies: No Known Allergies (Unverified , 04/24/13) Subjective pt reports sob improved Objective Last 24 Hour Vital Signs Date Time Temp Pulse Resp B/P Pulse Ox O2 Delivery O2 Flow Rate FiO2 07/24/16 16:00 77 07/24/16 16:00 97.7 72 18 131/74 95 Nasal Cannula 2.0 07/24/16 12:00 70 07/24/16 11:42 96.6 61 18 116/67 96 Nasal Cannula 2.0 07/24/16 08:34 78 150/96 07/24/16 08:01 96.4 78 20 150/96 95 Nasal Cannula 2.0 07/24/16 08:00 70 07/24/16 04:00 96.8 67 20 141/78 96 Room Air 07/24/16 04:00 69 07/24/16 00:00 97.0 64 20 145/73 97 Room Air 07/24/16 00:00 63 07/23/16 21:01 81 119/90 07/23/16 20:00 97.8 78 21 141/88 92 Room Air 07/23/16 20:00 76 Intake and Output 07/23/16 07/24/16 19:00 07:00 Intake Total 560 ml 300 ml Balance 560 ml 300 ml Intake Oral 560 ml 300 ml # Voids 4 1 Laboratory Tests 07/24/16 07:05: White Blood Count 5.6, Red Blood Count 4.03L, Hemoglobin 12.6, Hematocrit 38.0, Mean Corpuscular Volume 94, Mean Corpuscular Hemoglobin 31.2H, Mean Corpuscular Hemoglobin Concent 33.2, Red Cell Distribution Width 12.6, Platelet Count 143L, Mean Platelet Volume 8.9, Neutrophils (%) (Auto) 51.0, Lymphocytes (%) (Auto) 32.9, Monocytes (%) (Auto) 12.1H, Eosinophils (%) (Auto) 2.7, Basophils (%) ( Auto) 1.4, Sodium Level 141, Potassium Level 4.2, Chloride Level 100, Carbon Dioxide Level 30, Anion Gap 11, Blood Urea Nitrogen 14, Creatinine 0.8, Estimat Glomerular Filtration Rate , Glucose Level 128H, Calcium Level 8.9 Height (Feet): 5 Height (Inches): 8.00 Weight (Pounds): 250 Objective General Appearance: mild resp distress with somewhat labored breathing, alert HEENT: normocephalic, atraumatic, anicteric, mucous membranes moist, PERRL, EOMI, pharynx normal, no JVD Neck: non-tender, supple Respiratory/Chest: lungs clear, normal breath sounds, no respiratory distress, no accessory muscle use Cardiovascular/Chest: normal peripheral pulses, normal rate, regular rhythm Abdomen: normal bowel sounds, non tender, soft, no mass Extremities: non-tender, normal inspection, trace edema Skin Exam: warm/dry 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 Jul 24, 2016 18:37
[2016-07-24 20:00] VITALS: BP 145/89
[2016-07-24] MEDS: Atorvastatin 20mg tab ORAL SCH (20:45)
[2016-07-25 00:32] VITALS: BP 140/88
[2016-07-25 04:30] VITALS: BP 115/70
[2016-07-25 08:00] VITALS: BP 125/64
[2016-07-25] MEDS: Metoprolol Tartrate 12.5mg TAB ORAL SCH ×2 (08:31→20:31)
[2016-07-25] MEDS: Eliquis 2.5mg tablet ORAL SCH ×2 (08:33→20:29)
[2016-07-25 12:00] VITALS: BP 123/57
[2016-07-25] MEDS ORDERED: LIPITOR20 MG ORAL (12:49)
[2016-07-25] MEDS ORDERED: ELIQUIS5 MG PO (12:49)
[2016-07-25] MEDS ORDERED: BENAZEPRIL HCL40 MG ORAL (12:49)
[2016-07-25] MEDS ORDERED: LOPRESSOR25 M1 ORAL (12:49)
--- NOTE | 2016-07-25 12:58 | Discharge Summary ---
Discharge Summary Hospital Course Date of Admission Jul 22, 2016 at 16:43 Date of Discharge 07/25/2016 Admitting Diagnosis CHF, p A fib HPI Stephanie Hayward is a 86 year old female who was admitted on Jul 22, 2016 at 16:43 for Congestive Heart Failure Consultations EP/Cardiology Hospital Course 86 yo [place] F with PMH of HTN, HLD and DJD p/w 2 d h/o productive cough with yellowish sputum, and SOB. No cp/palpitations. No f/c. +generalized weakness. usually ambulates with no difficulties. No h/o PNA. In ED, CXR with b/l infiltrates and found to be in a fib with RVR, which converted back to NSR after a dose of Dilt. +LE edema on ROS No more a fib was noted on monitor. Received lasix w/ good response. Rate controlled on MTP, decreased to 12.5 BID due to low HR. Will start on Apixaban for pA Fib for stroke prevention. Azithromycin for bronchitis, will complete course. Afebrile and HDS. Discharge Medications New Medications: Apixaban (Eliquis) 5 Mg Tablet 5 MG PO BID, #60 TAB Atorvastatin Calcium* (Lipitor*) 20 Mg Tablet 20 MG ORAL BEDTIME, #30 TAB Azithromycin* (Zithromax*) 250 Mg Tablet 250 MG ORAL DAILY@1630 for 4 Days, TAB Benazepril Hcl* (Benazepril Hcl*) 40 Mg Tablet 40 MG ORAL DAILY, #30 TAB Metoprolol Tartrate (Metoprolol Tartrate) 25 Mg Tablet 12.5 MG ORAL Q12HR, #60 TAB Continued Medications: Albuterol Sulfate* (Albuterol Sulfate Mdi*) 8.5 Gm Hfa.aer.ad 2 PUFF INH Q6H, #1 EA 0 Refills Ascorbic Acid* (Ascorbic Acid*) 500 Mg Tablet 500 MG ORAL DAILY Aspirin* (Aspirin*) 81 Mg Tab.chew 81 MG ORAL DAILY, TAB Discontinued Medications: Amlodipine Besylate* (Amlodipine Besylate*) 10 Mg Tablet 10 MG ORAL DAILY, TAB Azithromycin* (Zithromax*) 250 Mg Tablet 250 MG ORAL DAILY, #6 TAB 0 Refills Take two tablets by mouth today, then take one tablet by mouth daily for four days Discharge Condition Upon Discharge: stable Discharge Disposition Patient was discharged to home + Discharge Diagnoses: (1) HTN (hypertension) (2) Atrial fibrillation with RVR (3) Acute CHF (4) Bronchitis Discharge Instructions Discharge Instructions Follow up with: PCP and cardiology w/in 1 week Diet: cardiac 2 GM Na, low fat Activity: resume normal activities Raoul Murray MD Jul 25, 2016 12:57
[2016-07-25] MEDS ORDERED: ZITHROMAX250 MG ORAL (13:02)
[2016-07-25] MEDS ORDERED: FUROSEMIDE40 MG ORAL (13:22)
[2016-07-25] MEDS ORDERED: POTASSIUM CHLO10 ME3 ORAL (13:24)
--- NOTE | 2016-07-25 14:11 | Cardiology Progress Note ---
Assessment/Plan Status: stable, unchanged Status Narrative Mrs. Hayward has exertional dyspnea due to pneumonia and component of CHF LV systolic function is mildly decreased by ECHO, EF 45-50%. She remains in SR on telemetry Assessment/Plan Continue eliquis, metoprolol for AF. Benazepril for afterload reduction, given cardiomyopathy, ? ischemic vs nonischemic. Lasix for periph edema and pulm vascular congestion. Will do cxr today to r/o chf Continue rx for pneumonia per PMD d/w RN Subjective ROS Limited/Unobtainable: No Subjective Mrs Hayward is dyspneic w/ walking in room. no c/o palpitations Objective Last 24 Hour Vital Signs Date Time Temp Pulse Resp B/P Pulse Ox O2 Delivery O2 Flow Rate FiO2 07/25/16 12:00 68 07/25/16 12:00 97.3 69 18 123/57 93 Nasal Cannula 2.0 07/25/16 08:32 125/64 07/25/16 08:31 63 125/64 07/25/16 08:00 97.3 63 18 125/64 96 Nasal Cannula 2.0 07/25/16 08:00 63 07/25/16 04:30 97.3 60 20 115/70 95 Room Air 07/25/16 04:00 76 07/25/16 02:59 98.6 07/25/16 00:32 98.0 82 20 140/88 97 Room Air 07/25/16 00:00 74 07/24/16 20:45 86 145/89 07/24/16 20:00 97.7 80 20 145/89 96 Nasal Cannula 2.0 07/24/16 20:00 72 07/24/16 18:49 131/74 07/24/16 16:00 77 07/24/16 16:00 97.7 72 18 131/74 95 Nasal Cannula 2.0 General Appearance: WD/WN, mild distress, obese, other - nc 02 Neck: supple, no JVD Rhythm: NSR Cardiovascular: normal rate, regular rhythm, no gallop/murmur Respiratory/Chest: other - bilateral rhonchi and expir wheezes Abdomen: normal bowel sounds, non tender, soft Extremities: moderate edema - 2+ pedal edema bilat Intake and Output 07/24/16 07/25/16 19:00 07:00 Intake Total 560 ml 240 ml Balance 560 ml 240 ml Intake Oral 560 ml 240 ml # Voids 4 2 # Bowel Movements 2 Microbiology Date/Time Source Procedure Growth Status 07/22/16 15:25 Blood Blood Culture - Preliminary NO GROWTH AFTER 48 HOURS Resulted 07/22/16 15:00 Blood Blood Culture - Preliminary NO GROWTH AFTER 48 HOURS Resulted 07/22/16 16:23 Nasal Nares Influenza Types A,B Antigen (MARTINEZ) - Final Complete SWEETIE DAY Jul 25, 2016 14:11
[2016-07-25] MEDS ORDERED: DuoNeb 0.5-3(2.5)mg/3ml neb HHN SCH (15:00)
[2016-07-25 16:00] VITALS: BP 143/70
--- NOTE | 2016-07-25 17:19 | General Progress Note ---
Assessment/Plan Status: stable Assessment/Plan (1) Acute CHF ICD Codes: I50.9 - Heart failure, unspecified SNOMED: 51846514 (2) Bronchitis ICD Codes: J40 - Bronchitis, not specified as acute or chronic SNOMED: 25413063 (3) Episode of generalized weakness ICD Codes: R53.1 - Weakness SNOMED: 88229081 (4) Atrial fibrillation with RVR ICD Codes: I48.91 - Unspecified atrial fibrillation SNOMED: 849374216565823 (5) HTN (hypertension) ICD Codes: I10 - Essential (primary) hypertension SNOMED: 93183725 (6) HLD (hyperlipidemia) ICD Codes: E78.5 - Hyperlipidemia, unspecified SNOMED: 86952075 (7) DJD (degenerative joint disease), multiple sites ICD Codes: M15.9 - Polyosteoarthritis, unspecified SNOMED: 303454600 Assessment/Plan - hold DC - c/w telemetry - appreciate EP recs - inc lasix - strict i/os - supplemental O2, wean as tolerated - apixaban 5mg BID - MTP 12.5 BID - azithromycin - c/w all other mgt - dispo planning Subjective Date patient seen: Jul 25, 2016 Respiratory: Reports: SOB with excertion, orthopnea, shortness of breath, wheezing Allergies: Coded Allergies: No Known Allergies (Unverified , 04/24/13) Subjective No acute events Discharge held due to persistent volume overload and sob w/ wheeze Still requiring supplemental O2 Diuretics intensified Objective Last 24 Hour Vital Signs Date Time Temp Pulse Resp B/P Pulse Ox O2 Delivery O2 Flow Rate FiO2 07/25/16 12:00 68 07/25/16 12:00 97.3 69 18 123/57 93 Nasal Cannula 2.0 07/25/16 08:32 125/64 07/25/16 08:31 63 125/64 07/25/16 08:00 97.3 63 18 125/64 96 Nasal Cannula 2.0 07/25/16 08:00 63 07/25/16 04:30 97.3 60 20 115/70 95 Room Air 07/25/16 04:00 76 07/25/16 02:59 98.6 07/25/16 00:32 98.0 82 20 140/88 97 Room Air 07/25/16 00:00 74 07/24/16 20:45 86 145/89 07/24/16 20:00 97.7 80 20 145/89 96 Nasal Cannula 2.0 07/24/16 20:00 72 07/24/16 18:49 131/74 Intake and Output 07/24/16 07/25/16 18:59 06:59 Intake Total 560 ml 240 ml Balance 560 ml 240 ml Intake Oral 560 ml 240 ml # Voids 4 2 # Bowel Movements 2 Labs Test 07/23/16 03:30 07/24/16 07:05 White Blood Count 9.9 K/UL (4.8-10.8) 5.6 K/UL (4.8-10.8) Red Blood Count 3.91 M/UL (4.20-5.40) 4.03 M/UL (4.20-5.40) Hemoglobin 12.5 G/DL (12.0-16.0) 12.6 G/DL (12.0-16.0) Hematocrit 37.8 % (37.0-47.0) 38.0 % (37.0-47.0) Mean Corpuscular Volume 96 FL (80-99) 94 FL (80-99) Mean Corpuscular Hemoglobin 31.9 PG (27.0-31.0) 31.2 PG (27.0-31.0) Mean Corpuscular Hemoglobin Concent 33.1 G/DL (32.0-36.0) 33.2 G/DL (32.0-36.0) Red Cell Distribution Width 12.4 % (11.6-14.8) 12.6 % (11.6-14.8) Platelet Count 133 K/UL (150-450) 143 K/UL (150-450) Mean Platelet Volume 7.8 FL (6.5-10.1) 8.9 FL (6.5-10.1) Neutrophils (%) (Auto) 77.3 % (45.0-75.0) 51.0 % (45.0-75.0) Lymphocytes (%) (Auto) 15.4 % (20.0-45.0) 32.9 % (20.0-45.0) Monocytes (%) (Auto) 6.0 % (1.0-10.0) 12.1 % (1.0-10.0) Eosinophils (%) (Auto) 0.8 % (0.0-3.0) 2.7 % (0.0-3.0) Basophils (%) (Auto) 0.5 % (0.0-2.0) 1.4 % (0.0-2.0) Sodium Level 139 mEQ/L (135-145) 141 mEQ/L (135-145) Potassium Level 4.0 mEQ/L (3.4-4.9) 4.2 mEQ/L (3.4-4.9) Chloride Level 99 mEQ/L (98-107) 100 mEQ/L (98-107) Carbon Dioxide Level 24 mEQ/L (20-30) 30 mEQ/L (20-30) Anion Gap 16 (5-15) 11 (5-15) Blood Urea Nitrogen 13 mg/dL (7-23) 14 mg/dL (7-23) Creatinine 0.8 mg/dL (0.5-0.9) 0.8 mg/dL (0.5-0.9) Estimat Glomerular Filtration Rate mL/min (>60) mL/min (>60) Glucose Level 126 mg/dL (74-106) 128 mg/dL (74-106) Calcium Level 8.8 mg/dL (8.6-10.2) 8.9 mg/dL (8.6-10.2) Total Bilirubin 1.2 mg/dL (0.0-1.2) Direct Bilirubin 0.2 mg/dL (0.1-0.3) Aspartate Amino Transf (AST/SGOT) 20 U/L (5-40) Alanine Aminotransferase (ALT/SGPT) 16 U/L (3-33) Alkaline Phosphatase 70 U/L (35-104) Troponin I < 0.30 ng/mL (<=0.30) Total Protein 6.0 g/dL (6.6-8.7) Albumin 3.5 g/dL (3.5-5.2) Globulin 2.5 g/dL Albumin/Globulin Ratio 1.4 (1.0-2.7) Height (Feet): 5 Height (Inches): 8.00 Weight (Pounds): 250 General Appearance: no apparent distress, alert EENT: PERRL/EOMI Neck: non-tender, supple Cardiovascular: normal peripheral pulses, normal rate, regular rhythm, regularly irregular, no gallop/murmur, JVD Respiratory/Chest: lungs clear, no respiratory distress, expiratory wheezing Abdomen: normal bowel sounds, non tender, soft, no organomegaly Edema: pitting - bl Raoul Galo MD Jul 25, 2016 17:19
[2016-07-25] MEDS: Azithromycin 250mg tab ORAL SCH (18:10)
[2016-07-25 20:00] VITALS: BP 138/75
[2016-07-25] MEDS: DuoNeb 0.5-3(2.5)mg/3ml neb HHN SCH (20:05)
[2016-07-25] MEDS: Atorvastatin 20mg tab ORAL SCH (20:31)
[2016-07-26] VITALS: BP 123/76
[2016-07-26] MEDS: DuoNeb 0.5-3(2.5)mg/3ml neb HHN SCH ×3 (01:44→13:15)
[2016-07-26 04:00] VITALS: BP 130/75
[2016-07-26 08:00] VITALS: BP 118/60
[2016-07-26] MEDS: Eliquis 2.5mg tablet ORAL SCH (09:07)
[2016-07-26 09:08] LABS: BASOPHILS % (AUTO) 1.2 % (0.0-2.0); EOSINOPHILS % (AUTO) 1.6 % (0.0-3.0); LYMPHOCYTES % (AUTO) 26.5 % (20.0-45.0); MEAN CORPUSCULAR HEMOGLOBIN 31.3 PG (27.0-31.0); MEAN CORPUSCULAR HGB CONC 32.5 G/DL (32.0-36.0); MEAN CORPUSCULAR VOLUME 96 FL (80-99); MEAN PLATELET VOLUME 7.9 FL (6.5-10.1); MONOCYTES % (AUTO) 7.4 % (1.0-10.0); NEUTROPHILS % (AUTO) 63.4 % (45.0-75.0); PLATELET COUNT 177 K/UL (150-450); RED BLOOD COUNT 4.37 M/UL (4.20-5.40); RED CELL DISTRIBUTION WIDTH 12.6 % (11.6-14.8); WHITE BLOOD COUNT 8.5 K/UL (4.8-10.8)
[2016-07-26] MEDS: Metoprolol Tartrate 12.5mg TAB ORAL SCH (09:08)
[2016-07-26 09:31] LABS: ANION GAP 16 (5-15); CALCIUM 9.6 mg/dL (8.6-10.2); CARBON DIOXIDE 30 mEQ/L (20-30); CHLORIDE 93 mEQ/L (98-107); HEMOLYSIS 7; POTASSIUM 3.9 mEQ/L (3.4-4.9); SODIUM 139 mEQ/L (135-145)
--- NOTE | 2016-07-26 11:27 | Diagnostic Imaging Report ---
Indication: Shortness of breath Technique: XRAY CHEST 1 V Comparison: 07/22/16 Findings: Cardiac silhouette is prominent. As compared to the prior examination, interstitial edema has improved. There is no pneumothorax or obvious effusion. No new consolidation is seen. Osseous structures are stable. Impression: Improved interstitial edema from the prior examination.
--- NOTE | 2016-07-26 11:45 | Diagnostic Imaging Report ---
Indication: Dyspnea Comparison: 02/23/16 A single view chest radiograph was obtained. Findings: Some vascular congestion demonstrated and appear slightly worse compared to the previous examination. Heart is mildly enlarged. Bones are osteopenic. Impression: CHF
[2016-07-26 12:00] VITALS: BP 112/62
--- NOTE | 2016-07-26 13:32 | Cardiology Progress Note ---
Assessment/Plan Status: stable, progressing Status Narrative Mrs. Hayward has improved w/ bronchodilator rx and lasix. She remains w/ slight periph edema. 02 sats are good (93-95%) on room air. Assessment/Plan Continue eliquis, metoprolol for AF. Benazepril for afterload reduction, given cardiomyopathy, ? ischemic vs nonischemic. stable for dc home today. In addition to above, would give atrovent inhaler and lasix 20 mg/d Followup this week w/ PMD d/w Dr Murray. D/w RN Subjective ROS Limited/Unobtainable: No Subjective Mrs Hayward is less dyspneic, off o2 Objective Last 24 Hour Vital Signs Date Time Temp Pulse Resp B/P Pulse Ox O2 Delivery O2 Flow Rate FiO2 07/26/16 13:25 99 18 99 Room Air 21 07/26/16 13:15 21 07/26/16 13:14 98 18 95 Room Air 21 07/26/16 12:00 90 07/26/16 10:32 119/64 07/26/16 09:08 90 118/60 07/26/16 08:11 89 07/26/16 08:00 97.5 90 18 118/60 94 Room Air 07/26/16 07:59 98 18 99 Room Air 07/26/16 07:49 28 07/26/16 07:49 95 Nasal Cannula 2.0 28 07/26/16 07:49 Nasal Cannula 2.0 28 07/26/16 07:48 97 18 95 Nasal Cannula 2.0 28 07/26/16 04:00 97.2 66 22 130/75 96 Nasal Cannula 2.0 07/26/16 03:46 62 07/26/16 01:50 68 16 99 Nasal Cannula 2.0 28 07/26/16 01:43 98 Nasal Cannula 2.0 28 07/26/16 01:43 Nasal Cannula 2.0 28 07/26/16 01:36 28 07/26/16 01:36 66 18 98 Nasal Cannula 2.0 28 07/26/16 00:00 97.2 68 22 123/76 93 Nasal Cannula 2.0 07/26/16 00:00 70 07/25/16 20:31 69 123/87 07/25/16 20:15 76 16 99 Nasal Cannula 2.0 28 07/25/16 20:04 76 18 Nasal Cannula 2.0 28 07/25/16 20:03 28 07/25/16 20:02 76 18 97 Nasal Cannula 2.0 28 07/25/16 20:00 96.6 77 22 138/75 93 Nasal Cannula 2.0 07/25/16 19:57 101 07/25/16 16:00 98.0 70 20 143/70 97 Nasal Cannula 2.0 07/25/16 16:00 75 General Appearance: WD/WN, no apparent distress, alert Neck: non-tender, no JVD Rhythm: NSR Cardiovascular: normal rate, regular rhythm, no gallop/murmur Respiratory/Chest: other - min rhonchi at bases. no wheezes or rales Abdomen: non tender, soft Extremities: trace edema - 2+ pedal edema bilat Intake and Output 07/25/16 07/26/16 19:00 07:00 Intake Total 990 ml 400 ml Balance 990 ml 400 ml Intake Oral 990 ml 400 ml # Voids 2 1 Laboratory Tests Test 07/26/16 08:30 White Blood Count 8.5 K/UL (4.8-10.8) Red Blood Count 4.37 M/UL (4.20-5.40) Hemoglobin 13.7 G/DL (12.0-16.0) Hematocrit 42.1 % (37.0-47.0) Mean Corpuscular Volume 96 FL (80-99) Mean Corpuscular Hemoglobin 31.3 PG (27.0-31.0) H Mean Corpuscular Hemoglobin Concent 32.5 G/DL (32.0-36.0) Red Cell Distribution Width 12.6 % (11.6-14.8) Platelet Count 177 K/UL (150-450) Mean Platelet Volume 7.9 FL (6.5-10.1) Neutrophils (%) (Auto) 63.4 % (45.0-75.0) Lymphocytes (%) (Auto) 26.5 % (20.0-45.0) Monocytes (%) (Auto) 7.4 % (1.0-10.0) Eosinophils (%) (Auto) 1.6 % (0.0-3.0) Basophils (%) (Auto) 1.2 % (0.0-2.0) Sodium Level 139 mEQ/L (135-145) Potassium Level 3.9 mEQ/L (3.4-4.9) Chloride Level 93 mEQ/L (98-107) L Carbon Dioxide Level 30 mEQ/L (20-30) Anion Gap 16 (5-15) H Blood Urea Nitrogen 16 mg/dL (7-23) Creatinine 1.0 mg/dL (0.5-0.9) H Estimat Glomerular Filtration Rate mL/min (>60) Glucose Level 193 mg/dL (74-106) H Calcium Level 9.6 mg/dL (8.6-10.2) Pro-B-Type Natriuretic Peptide 147 pg/mL (0-450) SWEETIE DAY Jul 26, 2016 13:32
[2016-07-26 16:00] VITALS: BP 130/62
[2016-07-26] MEDS ORDERED: ATROVENT HFA12.9 GM (18:04)
[2016-07-26] MEDS: Azithromycin 250mg tab ORAL SCH (18:14)
[2016-07-26] MEDS ORDERED: ATROVENT HFA12.9 GM IH (18:20)
--- NOTE | 2016-08-29 03:16 | Cardiology Report ---
APPROVED REPORT EKG Measurement Heart [id number] ME 160P20 [id number] Normal sinus rhythm with sinus arrhythmia Left axis deviation Left bundle branch block Abnormal ECG
--- NOTE | 2016-09-01 10:30 | Cardiology Report ---
APPROVED REPORT EXAM: Two-dimensional and M-mode echocardiogram with Doppler and color Doppler. INDICATION Atrial Fibrillation M-Mode DIMENSIONS IVSd1.6 (0.7-1.1cm)Left Atrium (MM)5.5 (1.6-4.0cm) LVDd4.5 (3.5-5.6cm)Aortic Root2.8 (2.0-3.7cm) PWd1.5 (0.7-1.1cm)Aortic Cusp Exc.2.0 (1.5-2.0cm) LVDs3.1 (2.5-4.0cm) PWs1.4 cm Normal left ventricular chamber size, systolic function and wall motion. Left ventricular ejection fraction estimated to be 55 %. Mild left ventricular hypertrophy. Anterior Echo-free space, may be due to pericardial fat or effusion. No evidence of pericardial effusion. Mild left atrial enlargement. Right cardiac chamber sizes are within normal limits. Mild focal aortic valve sclerosis with adequate cusp excursion. Mildly thickened mitral valve leaflets with normal excursion. Mild mitral annulus and aortic root calcification. Pulmonic valve not well visualized. Normal tricuspid valve structure. IVC dilated at 1.7cm with physiologic collapse. A color flow and spectral Doppler study was performed and revealed: Mild aortic regurgitation. Mild mitral regurgitation. Mitral diastolic velocities suggest reduced left ventricular relaxation (Grade I). Mild tricuspid regurgitation. Tricuspid systolic velocities suggests peak right ventricular systolic pressure of 44 mmHg, consistent with mild pulmonary hypertension. No pulmonic regurgitation.
== END 2016-07-26 18:49 | disposition home health service (06) | DRG 293 ==
LOC: EMR 15:24 → EDBEDREQ 16:36 → 2W 16:43 → EMR 19:00 → 2E 07-23 06:54
DX: I50.9 Heart failure, unspecified (principal); I48.91 Unspecified atrial fibrillation; I42.9 Cardiomyopathy, unspecified; I10 Essential (primary) hypertension; I44.7 Left bundle-branch block, unspecified; M15.9 Polyosteoarthritis, unspecified; E78.5 Hyperlipidemia, unspecified; J40 Bronchitis, not specified as acute or chronic; Z87.891 Personal history of nicotine dependence
CPT/HCPCS: 36415; 71010; 71275; 80048; 80053; 81003; 82248; 82550; 83605; 83880; 84439; 84443; 84484; 85025; 85379; 85610; 85730; 86710; 87040; 93005; 93306; 94640; 94664; 94760; J7620

== ENCOUNTER 2017-06-11 13:37 | Inpatient (IN) | payer MEDICARE ==
[~2017-06-11] VITALS: Ht 165.1 cm; Wt 120.2 kg
[2017-06-11] VITALS (7 sets, daily range): BP systolic 105–147; BP diastolic 54–80
[~2017-06-11 13:37] MED LIST changes: +ASPIRIN81 MG ORAL; +ATROVENT HFA12.9 GM; +ATROVENT HFA12.9 GM IH; +ELIQUIS5 MG PO; +FUROSEMIDE40 MG ORAL; +LIPITOR20 MG ORAL; +LOPRESSOR25 M1 ORAL; +OCUVITE TABLET1 EAC1 ORAL; +POTASSIUM CHLO10 ME3 ORAL; +VITAMIN B-122000 MC1 PO; +ZITHROMAX250 MG ORAL
--- NOTE | 2017-06-11 14:01 | Emergency Room Report ---
History of Present Illness General Chief Complaint: Dyspnea/Respdistress Source: Patient Present Illness HPI Patient is a 87-year-old female who presented after having increased difficulty breathing. Patient reports having been short of breath while in [place]. She was noted to have increase leg swelling. The patient had increased orthopnea with a nonproductive cough. She had prior history of atrial fibrillation. The patient states that she had been having increased work of breathing. She reports being followed by Dr Kenney. She denies recent fever or chest pain. Allergies: Coded Allergies: No Known Allergies (Unverified , 04/24/13) Patient History Past Medical History: see triage record Reviewed Nursing Documentation: PMH: Agreed, PSxH: Agreed Nursing Documentation-PMH Hx Cardiac Problems: Yes - a-fib Hx Hypertension: Yes Hx Pacemaker: No Hx Asthma: No Hx COPD: No Hx Diabetes: No Hx Cancer: No Hx Gastrointestinal Problems: No Hx Dialysis: No History Of Psychiatric Problem: No Hx Neurological Problems: No Hx Cerebrovascular Accident: No Hx Seizures: No Review of Systems All Other Systems: negative except mentioned in HPI Physical Exam Vital Signs Date Time Temp Pulse Resp B/P (MAP) Pulse Ox O2 Delivery O2 Flow Rate FiO2 06/11/17 13:45 98.2 118 2 150/78 94 Sp02 EP Interpretation: reviewed, normal General Appearance: normal inspection, alert, GCS 15, moderate distress Head: atraumatic ENT: normal ENT inspection, hearing grossly normal, normal voice Neck: normal inspection, full range of motion, supple, no bony tend Respiratory: normal inspection, no retraction, decreased breath sounds, wheezing, expiration Cardiovascular #1: tachycardia, edema Gastrointestinal: normal inspection, normal bowel sounds, non tender, soft, no guarding, no hernia Genitourinary: no CVA tenderness Musculoskeletal: normal inspection, back normal, normal range of motion Neurologic: normal inspection, alert, oriented x3, responsive, 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 Differential included but was not limited to anemia, pneumonia, pneumothorax, myocardial infarction, pericardial effusion, congestive heart failure, acidosis. Because of complexity of patient' s case laboratory testing and imaging studies were ordered. EKG interpreted by me showed sinus tachycardia with a rate of [address] or T wave changes. The patient was noted to have some acute difficulty breathing. She had prior history of some lung scarring. Patient had been given Lasix as well as breathing treatments. The Dr. FLORIDALMA Cantu was contacted for inpatient management at [facility]. Labs Test 06/11/17 13:56 White Blood Count 5.4 K/UL (4.8-10.8) Red Blood Count 4.22 M/UL (4.20-5.40) Hemoglobin 13.5 G/DL (12.0-16.0) Hematocrit 39.9 % (37.0-47.0) Mean Corpuscular Volume 95 FL (80-99) Mean Corpuscular Hemoglobin 32.0 PG (27.0-31.0) Mean Corpuscular Hemoglobin Concent 33.8 G/DL (32.0-36.0) Red Cell Distribution Width 12.1 % (11.6-14.8) Platelet Count 137 K/UL (150-450) Mean Platelet Volume 8.3 FL (6.5-10.1) Neutrophils (%) (Auto) 82.3 % (45.0-75.0) Lymphocytes (%) (Auto) 7.3 % (20.0-45.0) Monocytes (%) (Auto) 9.5 % (1.0-10.0) Eosinophils (%) (Auto) 0.0 % (0.0-3.0) Basophils (%) (Auto) 0.9 % (0.0-2.0) Sodium Level 135 MMOL/L (136-145) Potassium Level 4.6 MMOL/L (3.5-5.1) Chloride Level 99 MMOL/L (98-107) Carbon Dioxide Level 29 MMOL/L (21-32) Anion Gap 7 mmol/L (5-15) Blood Urea Nitrogen 19 mg/dL (7-18) Creatinine 1.1 MG/DL (0.55-1.30) Estimat Glomerular Filtration Rate mL/min (>60) Glucose Level 145 MG/DL (74-106) Calcium Level 9.1 MG/DL (8.5-10.1) EKG Diagnostic Results Rate: tachycardiac Rhythm: NSR ST Segments: other - left bundle branch block Last Vital Signs Date Time Temp Pulse Resp B/P (MAP) Pulse Ox O2 Delivery O2 Flow Rate FiO2 06/11/17 13:45 98.2 118 2 150/78 94 Status: improved Disposition: [facility] Condition: Stable Luis Miguel Castrejon Jun 11, 2017 14:01
[2017-06-11] MEDS ORDERED: Albuterol/Ipratropium 3ml neb HHN ONE (15:15)
[2017-06-11 15:33] LABS: BASOPHILS % (AUTO) 0.9 % (0.0-2.0); LYMPHOCYTES % (AUTO) 7.3 % (20.0-45.0); MEAN CORPUSCULAR HGB CONC 33.8 G/DL (32.0-36.0); MEAN CORPUSCULAR VOLUME 95 FL (80-99); MEAN PLATELET VOLUME 8.3 FL (6.5-10.1); MONOCYTES % (AUTO) 9.5 % (1.0-10.0); NEUTROPHILS % (AUTO) 82.3 % (45.0-75.0); PLATELET COUNT 137 K/UL (150-450); RED BLOOD COUNT 4.22 M/UL (4.20-5.40); RED CELL DISTRIBUTION WIDTH 12.1 % (11.6-14.8); WHITE BLOOD COUNT 5.4 K/UL (4.8-10.8)
[2017-06-11 15:41] LABS: ANION GAP 7 mmol/L (5-15); CALCIUM 9.1 MG/DL (8.5-10.1); CARBON DIOXIDE 29 MMOL/L (21-32); CHLORIDE 99 MMOL/L (98-107); CREATININE 1.1 MG/DL (0.55-1.30); POTASSIUM 4.6 MMOL/L (3.5-5.1); SODIUM 135 MMOL/L (136-145)
[2017-06-11 15:56] LABS: ALANINE AMINOTRANSFERASE 30 U/L (12-78); ALBUMIN/GLOBULIN RATIO 1.2 (1.0-2.7); ASPARTATE AMINO TRANSFERASE 29 U/L (15-37); CKMB 2.4 NG/ML (0.0-3.6); TOTAL PROTEIN 7.4 G/DL (6.4-8.2)
[2017-06-11] MEDS ORDERED: Nitroglycerin Patch 0.4mg TDERMAL SCH (16:00)
[2017-06-11 16:25] LABS: APPEARANCE,URINE SLIGHTLY CLOUDY; KETONES,URINE NEGATIVE (NEGATIVE); LEUKOCYTE ESTERASE ,URINE NEGATIVE (NEGATIVE); NITRITE,URINE NEGATIVE (NEGATIVE); PH,URINE 5 (4.5-8.0); PROTEIN,URINE NEGATIVE (NEGATIVE); UROBILINOGEN,URINE NORMAL MG/DL (0.0-1.0)
[2017-06-11 16:34] LABS: BACTERIA,URINE MODERATE /HPF; SQUAMOUS EPITHELIAL CELL,UR FEW /LPF (NONE/OCC); WBC,URINE 0-2 /HPF (0 - 2)
[2017-06-11] MEDS ORDERED: WARFARIN SODIUM3 MG ORAL (20:16)
[2017-06-11 20:57] LABS: ABG ALLEN TEST POSITIVE; ABG BASE EXCESS 3.4; ABG PCO2 31.7 mmHg (35.0-45.0)
[2017-06-11] MEDS ORDERED: Levalbuterol Inh UD 1.25mg/0.5ml HHN PRN (21:30)
[2017-06-11] MEDS ORDERED: Milk of Magnesia 30ml Ud ORAL PRN (21:30)
[2017-06-12] VITALS: BP 124/70
[2017-06-12 05:06] LABS: ANION GAP 7 mmol/L (5-15); CALCIUM 8.4 MG/DL (8.5-10.1); CARBON DIOXIDE 29 MMOL/L (21-32); CHLORIDE 99 MMOL/L (98-107); CREATININE 1.1 MG/DL (0.55-1.30); POTASSIUM 3.9 MMOL/L (3.5-5.1); SODIUM 135 MMOL/L (136-145)
[2017-06-12 05:18] LABS: ALANINE AMINOTRANSFERASE 30 U/L (12-78); ALBUMIN/GLOBULIN RATIO 1.1 (1.0-2.7); ASPARTATE AMINO TRANSFERASE 33 U/L (15-37); CHOLESTEROL 130 MG/DL (< 200); CHOLESTEROL/HDL RATIO 3.3 (3.3-4.4); MAGNESIUM 1.7 MG/DL (1.8-2.4); THYROID STIMULATING HORMONE 1.337 uiU/mL (0.358-3.740); TOTAL PROTEIN 6.4 G/DL (6.4-8.2)
[2017-06-12] MEDS ORDERED: Nitroglycerin 2% oint pkt TOPIC SCH (06:00)
[2017-06-12 08:00] VITALS: BP_SYST 125; BP_SYST 147; BP_DIAS 74; BP_DIAS 95
[2017-06-12] MEDS ORDERED: Pneumococcal Vaccine 25mcg/0.5ml IM ONE (09:00)
[2017-06-12] MEDS: Eliquis 2.5mg tablet ORAL SCH ×2 (10:08→17:39)
--- NOTE | 2017-06-12 10:16 | Diagnostic Imaging Report ---
Indication: Shortness of breath Technique: XRAY CHEST 1 V Comparison: 07/25/16 Findings: Cardiac silhouette is prominent. There is central pulmonary vascular congestion and mild interstitial prominence. There is no gross consolidation or pleural effusion. Degenerative changes of the spine are noted. Impression: Cardiomegaly with central pulmonary vascular congestion and mild interstitial probable edema. Clinical correlation/followup recommended.
[2017-06-12 12:00] VITALS: BP 108/65
[2017-06-12 16:00] VITALS: BP 117/76
--- NOTE | 2017-06-12 16:00 | History and Physical Report ---
DATE OF ADMISSION: 06/11/2017 CHIEF COMPLAINT: CHF exacerbation. HISTORY OF PRESENT ILLNESS: The patient is an 87-year-old female. She states she has a history of hypertension. Denies history of CHF, although prior admissions did document a history. She presented with complaints of shortness of breath for seven days. According to the patient, she lives in [place]. She did skip her Lasix on several occasions because of her traveling and presented with complaints of worsening shortness of breath. She denies any fever or chills. She has had no cough. Denies any orthopnea. No PND. On evaluation in the emergency room, the patient had x-ray evidence of congestive heart failure. She was noted to be hypoxic. She was given supplemental oxygen and a dose of Lasix and is now admitted for further evaluation and care. PAST MEDICAL HISTORY: As above. PAST SURGICAL HISTORY: None. CURRENT MEDICATIONS: Reconciled and reviewed. ALLERGIES: None. FAMILY HISTORY: None. SOCIAL HISTORY: The patient is a prior smoker, but quit. No alcohol. No drugs. REVIEW OF SYSTEMS: Negative except for shortness of breath. PHYSICAL EXAMINATION: VITAL SIGNS: Temperature 98 degrees, pulse 109, respirations 21, and blood pressure 125/74. GENERAL: The patient is well-developed, no apparent distress. She is able to speak in full sentences. NECK: Supple. HEART: Regular rate and rhythm. LUNGS: Few scattered rhonchi on the right. ABDOMEN: Soft, nontender, and nondistended. EXTREMITIES: Without clubbing, cyanosis. There is 1+ pitting edema. LABORATORY DATA: Sodium was 135, potassium 4.6, creatinine was 1.1, and glucose 145. Troponin 0.003. Natriuretic peptide level was 1500. White count was 5. ABG showed a pH of 7.52, CO2 of 31, pO2 72, bicarbonate 25, O2 saturation 95%. Urine was clear. Coags are pending. ASSESSMENT: This is a pleasant female, admitted with complaints of shortness of breath, suspect secondary to congestive heart failure exacerbation. 1. Possible congestive heart failure exacerbation. 2. Sinus tachycardia. 3. History of paroxysmal atrial fibrillation. PLAN: IV diuretic therapy. We will check coags. We will resume the patient on her Eliquis that she was previously on. We will check a venous duplex of the lower extremities. Cardiology consultation will be obtained. Serial troponins will be ordered. Edgard De Jesus M.D. DR: ROSA JOB#: [id number] CC:
[2017-06-12 20:40] VITALS: BP 116/64
[2017-06-13] VITALS: BP 113/63
[2017-06-13 04:39] VITALS: BP 128/71
[2017-06-13 07:54] LABS: ALANINE AMINOTRANSFERASE 42 U/L (12-78); ANION GAP 6 mmol/L (5-15); ASPARTATE AMINO TRANSFERASE 60 U/L (15-37); CALCIUM 8.5 MG/DL (8.5-10.1); CARBON DIOXIDE 29 MMOL/L (21-32); CHLORIDE 101 MMOL/L (98-107); CREATININE 1.1 MG/DL (0.55-1.30); POTASSIUM 4.2 MMOL/L (3.5-5.1); SODIUM 136 MMOL/L (136-145); TOTAL PROTEIN 6.5 G/DL (6.4-8.2)
[2017-06-13 08:00] VITALS: BP 120/70
[2017-06-13] MEDS: Eliquis 2.5mg tablet ORAL SCH ×2 (08:21→17:20)
[2017-06-13 12:00] VITALS: BP 105/62
--- NOTE | 2017-06-13 12:01 | General Progress Note ---
Assessment/Plan Problem List: (1) HTN (hypertension) ICD Codes: I10 - Essential (primary) hypertension SNOMED: 42570542 (2) HLD (hyperlipidemia) ICD Codes: E78.5 - Hyperlipidemia, unspecified SNOMED: 47883650 (3) Acute CHF ICD Codes: I50.9 - Heart failure, unspecified SNOMED: 24316095 (4) Atrial fibrillation with RVR ICD Codes: I48.91 - Unspecified atrial fibrillation SNOMED: 723585949031258 Status: stable, progressing Assessment/Plan diuresis monitor labs check cxr check d-dimer and follow up coags ?pe +recent travel consider v/q if sob not better echo Subjective ROS Limited/Unobtainable: No Constitutional: Reports: malaise, weakness HEENT: Reports: no symptoms Cardiovascular: Reports: edema Respiratory: Reports: cough, shortness of breath Gastrointestinal/Abdominal: Reports: no symptoms Genitourinary: Reports: no symptoms Neurologic/Psychiatric: Reports: no symptoms Endocrine: Reports: no symptoms Hematologic/Lymphatic: Reports: no symptoms Allergies: Coded Allergies: No Known Allergies (Unverified , 04/24/13) All Systems: reviewed and negative except above Subjective less sob. hr better controlled. on iv lasix. no cp Objective Last 24 Hour Vital Signs Date Time Temp Pulse Resp B/P (MAP) Pulse Ox O2 Delivery O2 Flow Rate FiO2 06/13/17 08:21 120/70 06/13/17 08:10 76 06/13/17 08:00 98.0 83 22 120/70 93 06/13/17 04:39 96.8 90 20 128/71 96 Nasal Cannula 06/13/17 04:00 77 06/13/17 04:00 Nasal Cannula 3.0 06/13/17 00:00 Nasal Cannula 3.0 06/13/17 00:00 98.1 79 18 113/63 98 Nasal Cannula 06/13/17 00:00 77 06/12/17 21:41 101 21 Nasal Cannula 2.0 28 06/12/17 20:40 97.4 90 18 116/64 95 Room Air 06/12/17 20:00 Nasal Cannula 3.0 06/12/17 20:00 112 06/12/17 16:00 97.7 107 22 117/76 95 06/12/17 15:14 111 06/12/17 12:00 97.8 106 21 108/65 95 Laboratory Tests 06/13/17 06:51: Sodium Level 136, Potassium Level 4.2, Chloride Level 101, Carbon Dioxide Level 29, Anion Gap 6, Blood Urea Nitrogen 23H, Creatinine 1.1, Estimat Glomerular Filtration Rate , Glucose Level 142H, Calcium Level 8.5, Total Bilirubin 0.4, Aspartate Amino Transf (AST/SGOT) 60H, Alanine Aminotransferase (ALT/SGPT) 42, Alkaline Phosphatase 50, Troponin I 0.024, Total Protein 6.5, Albumin 3.3L, Globulin 3.2, Albumin/Globulin Ratio 1.0 06/13/17 07:22: Magnesium Level 2.2 Height (Feet): 5 Height (Inches): 5.00 Weight (Pounds): 267 General Appearance: WD/WN, alert Neck: supple Cardiovascular: regular rhythm Respiratory/Chest: chest wall non-tender, lungs clear, normal breath sounds Abdomen: normal bowel sounds, non tender, soft, no organomegaly Edema: mild edema 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
[2017-06-13] MEDS: Guaifenesin/DM 10ml syrup ORAL PRN ×2 (13:49→20:00)
[2017-06-13 16:00] VITALS: BP 101/53
[2017-06-13 16:59] LABS: INR 1.1 (0.9-1.1)
[2017-06-13 20:39] VITALS: BP 109/61
[2017-06-14] VITALS (7 sets, daily range): BP systolic 106–129; BP diastolic 57–75
--- NOTE | 2017-06-14 02:45 | Progress Note ---
DATE: 06/12/2017 CARDIOLOGY PROGRESS NOTE Late Entry SUBJECTIVE: The patient was seen and evaluated. Case was discussed with Dr. De Jesus. Prior records ____ hospitalization earlier this year were reviewed as well. The patient has no chest pain. She does have shortness of breath. She has not improved overnight. OBJECTIVE: VITAL SIGNS: Blood pressure 117/76, pulse 107, respirations 22, and afebrile. NECK: Supple. LUNGS: With few rales. CARDIAC: Irregularly irregular rhythm. Normal S1 and S2. A 1/6 systolic murmur at apex. ABDOMEN: Soft and nontender. EXTREMITIES: Trace dependent edema. LABORATORY DATA: Sodium 135, potassium 3.9, bicarbonate 29, BUN 21, and creatinine 1.1. Magnesium 1.7, albumin 3.3, and LDL cholesterol 75. IMPRESSION: 1. Acute on chronic diastolic congestive heart failure. 2. Paroxysmal atrial fibrillation with rapid ventricular response. 3. Hypomagnesemia. 4. Hypertensive heart disease. 5. Chronic kidney disease. 6. Mild protein-calorie malnutrition. PLAN: 1. Full anticoagulation with apixaban for cardioembolic prophylaxis. 2. Continue IV diuretic therapy. 3. Check venous duplex scan. 4. Titrate anti-failure regimen and consider additional beta-jodie for rate control. Garret Mitchell M.D. DR: ZOË JOB#: [id number] CC:
--- NOTE | 2017-06-14 04:30 | Progress Note ---
DATE: 06/13/2017 CARDIOLOGY PROGRESS NOTE SUBJECTIVE: The patient is without distress. Shortness of breath, however, persists. Slightly improved only. PHYSICAL EXAMINATION: VITAL SIGNS: Blood pressure 120/70, pulse 76, and respiratory rate 22. LUNGS: Few rales. Jugular venous pressure is slightly elevated. CARDIAC: Irregularly irregular rhythm. Normal S1, S2. No new murmur. ABDOMEN: Soft. EXTREMITIES: With trace edema. LABORATORY DATA: Sodium 136, potassium 4.2, bicarbonate 29, BUN 23, and creatinine 1.1. Magnesium following repletion yesterday 2.2. Albumin 3.3. Echocardiogram reviewed. Minimal degenerative valve disease, normal ejection fraction, and diastolic dysfunction unchanged from September of 2016. IMPRESSION: 1. Paroxysmal atrial fibrillation. 2. Acute on chronic diastolic congestive heart failure. 3. Hypertensive heart disease. 4. Hyperlipidemia, stable on statins. 5. Recent travel history raising concern over deep venous thrombosis and pulmonary embolic event. PLAN: 1. Continue Apixaban for cardioembolic prophylaxis. 2. Continue diuresis with intravenous loop diuretic. 3. Monitor and replace electrolytes as needed. 4. Recheck chest x-ray, D-dimer study, and possible V/Q scan to follow. Keyla Villavicencio JOB#: [id number] CC:
[2017-06-14 07:55] LABS: THYROID STIMULATING HORMONE 1.572 uiU/mL (0.358-3.740)
--- NOTE | 2017-06-14 08:08 | General Progress Note ---
Assessment/Plan Problem List: (1) HTN (hypertension) ICD Codes: I10 - Essential (primary) hypertension SNOMED: 07435258 (2) HLD (hyperlipidemia) ICD Codes: E78.5 - Hyperlipidemia, unspecified SNOMED: 66547991 (3) Acute CHF ICD Codes: I50.9 - Heart failure, unspecified SNOMED: 94387928 (4) Atrial fibrillation with RVR ICD Codes: I48.91 - Unspecified atrial fibrillation SNOMED: 595851778991475 Status: stable, not improved Assessment/Plan cont diuresis monitor labs check cxr check d-dimer and follow up coags ?pe check vq on eliquis echo Subjective ROS Limited/Unobtainable: No Constitutional: Reports: malaise, weakness HEENT: Reports: no symptoms Cardiovascular: Reports: no symptoms Respiratory: Reports: cough, shortness of breath, SOB at rest Gastrointestinal/Abdominal: Reports: no symptoms Genitourinary: Reports: no symptoms Neurologic/Psychiatric: Reports: no symptoms Endocrine: Reports: no symptoms Hematologic/Lymphatic: Reports: no symptoms Allergies: Coded Allergies: No Known Allergies (Unverified , 04/24/13) All Systems: reviewed and negative except above Subjective no events. still with sob. no chest pain out of bed. still requires o2. bnp normal Objective Last 24 Hour Vital Signs Date Time Temp Pulse Resp B/P (MAP) Pulse Ox O2 Delivery O2 Flow Rate FiO2 06/14/17 04:31 97.3 105 18 118/58 95 Nasal Cannula 06/14/17 04:00 81 06/14/17 00:42 97.7 76 18 120/69 93 Nasal Cannula 06/14/17 00:00 76 06/13/17 20:39 97.3 69 18 109/61 93 Nasal Cannula 06/13/17 20:00 73 06/13/17 19:00 111 21 Nasal Cannula 2.0 28 06/13/17 16:12 67 06/13/17 16:00 97.8 75 22 101/53 94 06/13/17 12:37 79 06/13/17 12:00 97.9 80 22 105/62 94 06/13/17 08:21 120/70 06/13/17 08:10 76 Laboratory Tests 06/13/17 15:28: Prothrombin Time 12.0H, Prothromb Time International Ratio 1.1 06/14/17 07:00: D-Dimer [Pending], Sodium Level [Pending], Potassium Level [Pending], Chloride Level [Pending], Carbon Dioxide Level [Pending], Blood Urea Nitrogen [Pending], Creatinine [Pending], Estimat Glomerular Filtration Rate [Pending], Glucose Level [Pending], Calcium Level [Pending], Magnesium Level [Pending], Total Bilirubin [Pending], Aspartate Amino Transf (AST/SGOT) [Pending], Alanine Aminotransferase (ALT/SGPT) [Pending], Alkaline Phosphatase [Pending], Pro-B- Type Natriuretic Peptide 132H, Total Protein [Pending], Albumin [Pending], Globulin [Pending], Thyroid Stimulating Hormone (TSH) 1.572 Height (Feet): 5 Height (Inches): 5.00 Weight (Pounds): 267 Objective General Appearance: WD/WN, alert Neck: supple Cardiovascular: regular rhythm Respiratory/Chest: chest wall non-tender, lungs clear, normal breath sounds Abdomen: normal bowel sounds, non tender, soft, no organomegaly Edema: mild edema 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
[2017-06-14 08:47] LABS: ALANINE AMINOTRANSFERASE 46 U/L (12-78); ALBUMIN/GLOBULIN RATIO 1.1 (1.0-2.7); ANION GAP 7 mmol/L (5-15); ASPARTATE AMINO TRANSFERASE 57 U/L (15-37); CALCIUM 8.5 MG/DL (8.5-10.1); CARBON DIOXIDE 31 MMOL/L (21-32); CHLORIDE 98 MMOL/L (98-107); POTASSIUM 4.1 MMOL/L (3.5-5.1); SODIUM 136 MMOL/L (136-145); TOTAL PROTEIN 6.2 G/DL (6.4-8.2)
[2017-06-14] MEDS: Metoprolol Succinate XL 25mg tab ORAL SCH (09:08)
[2017-06-14] MEDS: Eliquis 2.5mg tablet ORAL SCH ×2 (09:08→17:31)
--- NOTE | 2017-06-14 10:07 | Cardiology Report ---
APPROVED REPORT EXAM: Two-dimensional and M-mode echocardiogram with Doppler and color Doppler. INDICATION Arrhythmia M-Mode DIMENSIONS IVSd1.7 (0.7-1.1cm)Left Atrium (MM)5.1 (1.6-4.0cm) LVDd3.7 (3.5-5.6cm)Aortic Root2.3 (2.0-3.7cm) PWd1.2 (0.7-1.1cm)Aortic Cusp Exc.1.7 (1.5-2.0cm) LVDs3.1 (2.5-4.0cm) PWs1.7 cm Technically difficult study due to poor acoustical windows. Normal left ventricular chamber size, systolic function and wall motion. Left ventricular ejection fraction estimated to be 60-65%. No evidence of left ventricular hypertrophy. No evidence of pericardial or pleural effusion. Right cardiac chamber sizes are within normal limits. Mild left atrial enlargement by 2D. Focal aortic valve sclerosis with adequate cusp excursion. Thickened mitral valve leaflets with normal excursion. Mitral stenosis is seen. Mild mitral annulus and aortic root calcification. Pulmonic valve not well visualized. Normal tricuspid valve structure. IVC is normal in size and collapsible with respiration. A color flow and spectral Doppler study was performed and revealed: Trace aortic regurgitation. No mitral regurgitation. Mitral diastolic velocities suggest reduced left ventricular relaxation c/w diastolic dysfunction grade 1. No tricuspid regurgitation.
--- NOTE | 2017-06-14 11:38 | Diagnostic Imaging Report ---
Indication: SOB Technique: One view of the chest Comparison: 06/11/2017 Findings: Interstitial markings appear less prominent currently. There is persistent central bronchial wall thickening. The heart remains borderline enlarged. The pleural spaces are clear. No focal airspace consolidation Impression: Improved interstitial edema, over 3 days
[2017-06-14] MEDS: Guaifenesin/DM 10ml syrup ORAL PRN (14:20)
--- NOTE | 2017-06-14 17:26 | Diagnostic Imaging Report ---
Indications: A 7-year-old female with shortness of breath Technique: IV administration 5.4 mCi 99m technetium macroaggregated albumin. Images obtained over the lungs in multiple projections. Previously, patient inhaled 42 mCi aerosolized 99M technetium DTPA. Images obtained over the lungs in multiple projections Comparison: Reference made to chest radiograph of earlier the same date Findings: Heterogeneous tracer distribution on the bursal images with considerable airway clumping of tracer. Perfusion images demonstrate apparent heterogeneous tracer distribution, likely related to body habitus, without definite focal segmental or subsegmental abnormality or evidence of aerosol perfusion mismatch Impression: Findings deemed low probability for pulmonary embolus
[2017-06-15 04:00] VITALS: BP 143/87
--- NOTE | 2017-06-15 04:00 | Progress Note ---
DATE: 06/14/2017 CARDIOLOGY PROGRESS NOTE SUBJECTIVE: The patient without chest pain. Still has shortness of breath however. OBJECTIVE: VITAL SIGNS: Heart rates 69 to 105, sinus rhythm, blood pressure 118/58, respiratory rate 18, afebrile, the patient has 93% oxygen saturation on two liters. LUNGS: Diminished breath sounds. No wheezing. HEART: Regular rhythm and rate. Normal S1 and S2. There is a fourth heart sound. ABDOMEN: Soft. EXTREMITIES: No edema. LABORATORY AND DIAGNOSTIC DATA: Monitored rhythm sinus with bundle-branch block. Urine culture, Gram-negative rods. Pro-natriuretic peptide is 132. Albumin is 3.3. BUN 26 and creatinine 1. IMPRESSION: 1. Hypoxia. 2. Dyspnea. 3. No clinical signs of acute congestive heart failure. 4. Paroxysmal atrial fibrillation, now in sinus rhythm with underlying conduction system disease. 5. Hypertensive heart disease. 6. Recent travel history. 7. Rule out deep venous thrombosis and pulmonary emboli. PLAN: 1. V/Q scan is pending. 2. Repeat chest x-ray requested. 3. Continue nasal oxygen. 4. Consider CT of the chest. 5. Nasal oxygen. 6. No additional cardiovascular intervention is presently planned. Garret Mitchell M.D. DR: Ambrose JOB#: [id number] CC:
--- NOTE | 2017-06-15 06:00 | Consultation ---
DATE OF CONSULTATION: 06/11/2017 CARDIOLOGY CONSULTATION CONSULTING PHYSICIAN: Garret Mitchell M.D. REQUESTING PHYSICIAN: Edgard De Jesus M.D. REASON FOR CONSULTATION: Shortness of breath in the setting of rapid atrial fibrillation. HISTORY OF PRESENT ILLNESS: This is an 87-year-old female. She has a history of paroxysmal atrial fibrillation. She has been traveling in [place]. She has had increasing leg swelling and shortness of breath. Concurrently, she has had orthopnea and a nonproductive cough. She denies any fevers or chills. No chest pain. She has not had her medications. She came to the emergency room and was noted to have rapid atrial fibrillation. I have been asked to assist with cardiovascular care. PAST MEDICAL HISTORY: Hypertension, paroxysmal atrial fibrillation, osteoarthritis, degenerative disk disease, history of diastolic dysfunction and congestive heart failure with prior hospitalization. MEDICATIONS: Reviewed and reconciled. ALLERGIES: None. SOCIAL HISTORY: Prior smoker. There is a 40-pack year history. No alcohol or substance abuse. FAMILY HISTORY: Noncontributory. REVIEW OF SYSTEMS: No fevers or chills. No loss of vision or hearing. No history of seizures or strokes. No incontinence and no history of kidney failure. No change in bowel habits. No prior history of blood clotting. No history of diabetes or thyroid impairment. PHYSICAL EXAMINATION: VITAL SIGNS: Afebrile, blood pressure 125/74, pulse 109, and respiratory rate 21. HEENT: Normocephalic and atraumatic. Moderately obese. NECK: Supple. Jugular venous pressure is slightly elevated. LUNGS: With coarse breath sounds. Few rhonchi. CARDIAC: Irregularly irregular rhythm. Normal S1 and S2. A 1/6 systolic apical murmur. ABDOMEN: Soft and nontender. EXTREMITIES: A 1+ dependent edema. NEUROLOGIC: Nonfocal. LABORATORY DATA: Pro-natriuretic peptide 1500. ABG, 7.5, 231, and 72. IMPRESSION: 1. Acute on chronic diastolic congestive heart failure. 2. 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 3. Paroxysmal atrial fibrillation with rapid ventricular response. 4. Hypertensive heart disease. 5. Metabolic alkalosis. 6. Acute myocardial ischemia. PLAN: 1. Diuresis. 2. Cardiac monitoring. 3. Full anticoagulation for cardioembolic prophylaxis. 4. Venous duplex for possible source of pulmonary emboli in view of recent travel history. 5. Beta-blockade. 6. Nasal oxygen. 7. Titrate antihypertensives. Garret Mitchell M.D. DR: Ambrose JOB#: [id number] CC:
[2017-06-15] MEDS ORDERED: METOPROLOL SUCC25 MG ORAL (07:31)
[2017-06-15] MEDS ORDERED: FUROSEMIDE40 MG ORAL (07:31)
[2017-06-15] MEDS ORDERED: ELIQUIS2.5 MG ORAL (07:31)
[2017-06-15] MEDS ORDERED: PROTONIX40 MG ORAL (07:31)
[2017-06-15] MEDS ORDERED: BENAZEPRIL HCL40 MG ORAL (07:31)
[2017-06-15 08:39] VITALS: BP 122/66
[2017-06-15 09:39] VITALS: BP 122/66
[2017-06-15] MEDS: Metoprolol Succinate XL 25mg tab ORAL SCH (09:39)
[2017-06-15] MEDS: Eliquis 2.5mg tablet ORAL SCH (09:39)
--- NOTE | 2017-06-16 05:15 | Progress Note ---
DATE: 06/15/2017 CARDIOLOGY PROGRESS NOTE SUBJECTIVE: The patient has no chest pain. Less shortness of breath. Monitored rhythm, sinus. Oxygen saturation adequate on room air. PHYSICAL EXAMINATION: LUNGS: Good breath sounds. HEART: Regular rhythm and rate. Normal S1, S2. ABDOMEN: Soft. No edema. IMPRESSION: 1. Paroxysmal atrial fibrillation. 2. Conduction system disease of the heart. 3. Hypertensive heart disease. 4. Chronic diastolic congestive heart failure. 5. No signs of acute deep venous thrombosis or pulmonary embolus. 6. Hypoxia, recovered. PLAN: 1. Continue current management as an outpatient. 2. No indications for oxygen or anticoagulation. 3. Maintain current antiarrhythmic therapy. Garret Mitchell M.D. DR: BOBBY JOB#: [id number] CC:
--- NOTE | 2017-06-16 05:30 | Discharge Summary ---
DATE OF ADMISSION: 06/11/2017 DATE OF DISCHARGE: 06/15/2017 ADMISSION DIAGNOSES: 1. Congestive heart failure exacerbation. 2. Respiratory insufficiency. 3. Hypoxemia. 4. Supraventricular tachycardia. DISCHARGE DIAGNOSES: 1. Congestive heart failure exacerbation. 2. Respiratory insufficiency. 3. Hypoxemia. 4. Supraventricular tachycardia. HISTORY AND HOSPITAL COURSE: The patient is a pleasant female with a history of congestive heart failure and paroxysmal atrial fibrillation. She presented with congestion and shortness of breath after going on a trip to [place]. She admitted to not taking any of her diuretic therapy. She was diagnosed with CHF exacerbation. She received intravenous Lasix. She was diuresed aggressively. She had gradual improvement on her chest x-ray. She was ruled out EKGs. Echo showed normal LV function. She had a ventilation/perfusion scan that was negative for PE. She was switched from Coumadin back to Eliquis. She was not therapeutic with her INR. On discharge, she was doing well. She will be discharged home. Prescriptions were sent electronically to her pharmacy. She has been asked to follow up with her PMD. DISCHARGE MEDICATIONS: Please see discharge medication list for discharge medications. DIET: Cardiac diet. ACTIVITY: Ad-mac. Edgard De Jesus M.D. DR: PAM JOB#: [id number] CC:
--- NOTE | 2017-06-17 11:01 | Diagnostic Imaging Report ---
APPROVED REPORT CPT Code: 51789 Present Symptoms Shortness of breath BILATERAL: Imaging reveals a patent deep venous system bilaterally. There is no evidence of thrombus within the femoral, popliteal or tibial segments. The greater saphenous veins are also within normal limits. Doppler indicates normal spontaneous flow within these segments.
--- NOTE | 2017-06-17 11:04 | Cardiology Report ---
APPROVED REPORT EKG Measurement Heart [id number] Sinus tachycardia Left axis deviation Left bundle branch block Abnormal ECG
== END 2017-06-15 11:08 | disposition home health service (06) | DRG 291 ==
LOC: EMR 14:18 → 2E 19:45 → EDBEDREQ 21:20 → 2E 22:00
DX: I13.0 Hypertensive heart and chronic kidney disease with heart failure and stage 1 through stage 4 chronic kidney disease, or unspecified chronic kidney disease (principal); I50.33 Acute on chronic diastolic (congestive) heart failure; E87.3 Alkalosis; I48.0 Paroxysmal atrial fibrillation; E44.1 Mild protein-calorie malnutrition; Z68.41 Body mass index [BMI] 40.0-44.9, adult; I47.1 Supraventricular tachycardia; E83.42 Hypomagnesemia; I45.4 Nonspecific intraventricular block; N18.9 Chronic kidney disease, unspecified; Z87.891 Personal history of nicotine dependence; R09.02 Hypoxemia; E78.5 Hyperlipidemia, unspecified; Z23 Encounter for immunization
CPT/HCPCS: 36415; 36600; 71010; 78579; 78580; 80053; 80061; 81003; 82550; 82553; 82803; 83605; 83735; 83880; 84443; 84484; 85025; 85379; 85610; 87040; 87086; 87181; 90732; 93005; 93306; 93970; 94640; 94664; 99285; A9503; J7620